=== PATIENT | female | born 1970 | race Caucasian/White ===

== ENCOUNTER 2019-09-05 08:34 | Outpatient (CLI) | payer BC, SELFPAY ==
--- NOTE | ~2019-09-05 | MM_ITS ---
EXAMINATION: MM screening cyril BI w vincent HISTORY: Screening mammogram TECHNIQUE: Craniocaudal and mediolateral oblique 3-D tomosynthesis images were obtained and synthetic 2-D images were generated. CAD analysis was submitted and interpreted. COMPARISON: Comparison to multiple prior studies sequentially, with oldest reviewed study dated 09/2012. BREAST PARENCHYMAL COMPOSITION: The breasts are heterogeneously dense, which may obscure small masses . FINDINGS: There is no evidence of suspicious mass, calcification, or architectural distortion to sugg est malignancy in either breast. There has been no suspicious interval change. IMPRESSION: 1. No mammographic evidence of malignancy. 2. Recommend routine screening mammography in one year. BI-RADS Category 1: Negative Reviewed, dictated and finalized at location A.
== END 2019-09-05 08:35 | disposition home or self-care (01) ==
LOC: ANHIMG 08:39
PROVIDERS: PCP Family Medicine; Visit Provider Obstetrics & Gynecology
DX: Z12.31 Encounter for screening mammogram for malignant neoplasm of breast (principal)
CPT/HCPCS: 77063; 77067

== ENCOUNTER → 2020-06-20 12:15 | Outpatient (CLI) | payer BC, SELFPAY ==
--- NOTE | ~2020-06-20 | XR_ITS ---
XR lumbar spine min 4V 06/20/2020 13:08 Indication: Osteoarthritis. Procedure: 5 views lumbar spine Comparison: 02/14/2006 Findings: There is disc narrowing at L3-4, L4-5 and L5-S1. There is moderate multilevel facet hypertr ophy. No fracture or traumatic malalignment. No evidence for spondylolisthesis. Sacral foramen are sy mmetric. Impression: 1: Mild-moderate lumbar spondylosis. Reviewed, dictated and finalized at location B. DOOR REPAIRER Impression: 1: Mild-moderate lumbar spondylosis.
--- NOTE | ~2020-06-20 | XR_ITS ---
XR knee RT min 4V 06/20/2020 13:08 INDICATION: Right knee pain PROCEDURE: 4 views right knee COMPARISON: 08/26/2014 FINDINGS: Fracture, dislocation or subluxation is not identified. No significant joint effusion. The soft tissues appear within normal limits. No foreign bodies are identified. IMPRESSION: 1: NO ACUTE BONE OR JOINT ABNORMALITY IDENTIFIED. Reviewed, dictated and finalized at location B. ER MEAT
--- NOTE | ~2020-06-20 | XR_ITS ---
XR sacroiliac joints min 3V 06/20/2020 13:08 Indication: Abnormal immunologic findings Procedure: AP and bilateral oblique views of the sacroiliac joints. Comparison: No prior studies for comparison. Findings: Normal anatomic alignment. No evidence for ankylosis or significant lytic lesions. Mild sym metric degenerative changes of the sacroiliac joints. Sacral foramen are symmetric. Impression: 1: Mild symmetric degenerative changes of the sacroiliac joints. Reviewed, dictated and finalized at location B. NG CUTTING MACHINE OPERATOR Impression: 1: Mild symmetric degenerative changes of the sacroiliac joints.
--- NOTE | ~2020-06-20 | XR_ITS ---
EXAMINATION: XR knee LT min 4V DATE: 06/20/2020 13:08 INDICATION: Other specified abnormally immunological findings in serum. TECHNIQUE: 4 views of left knee were obtained. COMPARISON: Left knee radiographs 08/26/14 FINDINGS: Bone alignment is normal. No fracture. There is mild tricompartmental osteoarthritis. No kn ee joint effusion. IMPRESSION: 1. Mild left knee osteoarthritis. Reviewed, dictated and finalized at location A. RAM PROFESSIONAL
--- NOTE | ~2020-06-20 | XR_ITS ---
EXAMINATION: HAND-RUFINA ARTHRITIS 3+VIEWS DATE: 06/20/2020 13:08 INDICATION: Bilateral hand weakness, left wrist pain and pain at the right thumb. TECHNIQUE: Posteroanterior, lateral, and oblique views of the left and of the right hands as well as a ballcatchers view of both hands were obtained. COMPARISON: None. FINDINGS: Alignment is normal at the bilateral hands and wrists. No fracture. Mild polyarticular osteoarthritis with symmetric typical distribution at the radial aspect of the carpus and at multiple predominantly distal interphalangeal joints. No erosions to suggest an inflammatory arthritis. IMPRESSION: 1. Typical distribution of mild polyarticular osteoarthritis at the bilateral hands. No findings to s uggest an inflammatory arthritis. Reviewed, dictated and finalized at location A. ULATOR OPERATOR IMPRESSION: 1. Typical distribution of mild polyarticular osteoarthritis at the bilateral h ands. No findings to suggest an inflammatory arthritis.
--- NOTE | ~2020-06-20 | XR_ITS ---
XR foot RT standing 2V, XR foot LT standing 2V 06/20/2020 13:08 INDICATION: Bilateral foot pain PROCEDURE: 2 views each foot COMPARISON: No prior studies for comparison. FINDINGS: Fracture, dislocation or subluxation is not identified. Lisfranc joint intact. The soft tis sues appear within normal limits. No foreign bodies are identified. IMPRESSION: 1: NO ACUTE BONE OR JOINT ABNORMALITY IDENTIFIED. Reviewed, dictated and finalized at location B. UP MAKER IMPRESSION: 1: NO ACUTE BONE OR JOINT ABNORMALITY IDENTIFIED.
== END ==
PROVIDERS: PCP Family Medicine; Visit Provider Internal Medicine
DX: R76.8 Other specified abnormal immunological findings in serum (principal); Z79.899 Other long term (current) drug therapy; M19.90 Unspecified osteoarthritis, unspecified site; Z71.89 Other specified counseling; M47.896 Other spondylosis, lumbar region; M17.12 Unilateral primary osteoarthritis, left knee
CPT/HCPCS: 72110; 72202; 73130; 73564; 73620

== ENCOUNTER → 2020-06-20 13:15 | Outpatient (CLI) | payer BC, SELFPAY ==
--- NOTE | ~2020-06-20 | XR_ITS ---
EXAMINATION: XR chest 2V 06/20/2020 13:34 INDICATION: Shortness of breath PROCEDURE: PA and lateral views of the chest COMPARISON: 03/13/2015 FINDINGS: The lungs are clear. The cardiomediastinal silhouette is within normal limits. There are no pleural effusions. There is no pneumothorax suspected. IMPRESSION: 1: NO ACUTE CARDIOPULMONARY DISEASE. Reviewed, dictated and finalized at location B. BODY MECHANIC
== END ==
PROVIDERS: Visit Provider Family Medicine
DX: R06.02 Shortness of breath (principal)
CPT/HCPCS: 71046

== ENCOUNTER 2020-08-13 15:47 | Outpatient (CLI) | payer BC, SELFPAY | END 2020-08-13 15:48 | disposition home or self-care (01) | LOC: ANHCOVIDVC 15:47 | PROVIDERS: PCP Family Medicine | DX: Z23 Encounter for immunization (principal) | CPT/HCPCS: 0001A; 91300 ==

== ENCOUNTER → 2020-08-18 13:33 | Outpatient (CLI) | payer BC, SELFPAY ==
--- NOTE | ~2020-08-18 | XR_ITS ---
XR foot LT min 3V DATE: 08/18/2020 13:52 INDICATION: Left foot injury TECHNIQUE: 4 views COMPARISON: 06/20/2020 left foot FINDINGS: No fracture or dislocation, periosteal reaction or bone destruction. IMPRESSION: Negative Reviewed, dictated and finalized at location A. IMPRESSION: Negative
== END ==
PROVIDERS: PCP Family Medicine; Visit Provider Physician Assistant
DX: S99.922A Unspecified injury of left foot, initial encounter (principal); X58.XXXA Exposure to other specified factors, initial encounter
CPT/HCPCS: 73630

== ENCOUNTER 2020-09-03 15:22 | Outpatient (CLI) | payer BC, SELFPAY | END 2020-09-03 15:23 | PROVIDERS: PCP Family Medicine | DX: Z23 Encounter for immunization (principal) | CPT/HCPCS: 0002A; 91300 ==

== ENCOUNTER → 2021-07-20 16:37 | Outpatient (CLI) | payer BC, SELFPAY ==
--- NOTE | ~2021-07-20 | XR_ITS ---
EXAMINATION: XR chest 2V DATE: 07/20/2021 16:52 INDICATION: Bronchitis, not specified as acute or chronic. TECHNIQUE: Frontal and lateral views of the chest were obtained. COMPARISON: Chest 2 views 06/20/2020 FINDINGS: The chest demonstrates clear lungs without pneumonia, pleural effusion, or pneumothorax. Th e heart size is normal. IMPRESSION: 1. No acute cardiopulmonary disease. Reviewed, dictated and finalized at location A.
== END ==
PROVIDERS: Visit Provider Nurse Practitioner Gerontology
DX: J40 Bronchitis, not specified as acute or chronic (principal)
CPT/HCPCS: 71046

== ENCOUNTER 2021-12-08 07:36 | Outpatient (CLI) | payer BC, SELFPAY ==
--- NOTE | ~2021-12-08 | MM_ITS ---
EXAMINATION: MM screening cyril BI w vincent HISTORY: Screening TECHNIQUE: Craniocaudal and mediolateral oblique 3-D tomosynthesis images were obtained and synthetic 2-D images were generated. CAD analysis was submitted and interpreted. COMPARISON: Comparison to multiple prior studies sequentially, with oldest reviewed study dated 01/01. BREAST PARENCHYMAL COMPOSITION: The breasts are heterogeneously dense, which may obscure small masses . FINDINGS: There is no evidence of suspicious mass, calcification, or architectural distortion to sugg est malignancy in either breast. There has been no suspicious interval change. IMPRESSION: 1. No mammographic evidence of malignancy. 2. Recommend routine screening mammography in one year. BI-RADS Category 1: Negative Reviewed, dictated and finalized at location A.
== END 2021-12-08 07:37 | disposition home or self-care (01) ==
PROVIDERS: PCP Family Medicine; Visit Provider Obstetrics & Gynecology
DX: Z12.31 Encounter for screening mammogram for malignant neoplasm of breast (principal)
CPT/HCPCS: 77063; 77067

== ENCOUNTER → 2022-01-26 07:55 | Outpatient (CLI) | payer BC, SELFPAY ==
--- NOTE | ~2022-01-26 | US_ITS ---
US abdomen limited INDICATION: Right upper quadrant pain PROCEDURE: Realtime right upper abdominal ultrasound. COMPARISON: No prior studies for comparison. FINDINGS: The pancreas is normal without focal mass or pancreatic ductal dilation. Liver echotexture is normal without focal mass or intrahepatic biliary dilatation. There is normal directional flow i n the portal vein. The gallbladder is normal without stones, gallbladder wall thickening or pericholecystic fluid. Comm on bile duct measures 4 mm. No sonographic Rowell's sign. IMPRESSION: 1: Normal limited abdominal ultrasound. Reviewed, dictated and finalized at location A.
== END ==
PROVIDERS: PCP Family Medicine; Visit Provider Physician Assistant
DX: R10.11 Right upper quadrant pain (principal)
CPT/HCPCS: 76705

== ENCOUNTER 2022-03-24 01:31 | Day surgery (SDC) | payer BC, SELFPAY ==
[2022-03-16 10:57] VITALS: BMI 25.0
[2022-03-24 08:28] VITALS: BP 133/62; PULSE 58; RESP 18; TEMP 36.1; O2SAT 100; BMI 25.7
[2022-03-24] MEDS: LACTATED RINGERS 1,000 ML 150 ML IV CONT (08:37)
--- NOTE | 2022-03-24 09:11 | WPDANESEPPF ---
Anes - Initial Pre Proc Eval Procedure: Operation Date: 03/24/22 09:45 Proposed Procedures p Esophagogastroduodenoscopy EGD - Obey Holt MD Date/Time: 03/24/22 09:11 Surgeon: Obey Holt MD Pre Op Diagnosis: epigastric pain & abdominal pain Patient Data Age: 52 Gender: F Height: 1.65 m Weight: 70.1 kg Last Vital Signs Temp 96.9 F L 03/24/22 08:28 Pulse 58 L 03/24/22 08:28 Resp 18 03/24/22 08:28 BP 133/62 03/24/22 08:28 Pulse Ox 100 03/24/22 08:28 O2 Del Method Room Air 03/24/22 08:28 Allergies Allergy/AdvReac Type Severity Reaction Status Date / Time codeine Allergy Unknown Hives Verified 03/24/22 08:27 Home Medications Medication Instructions Recorded Confirmed Type meloxicam 15 mg tablet 15 mg PO DAILY 06/01/21 03/16/22 History azelastine 205.5 mcg (0.15 %) 1 spray intranasal DAILY #30 mL 07/06/21 03/16/22 Rx nasal spray albuterol sulfate 90 mcg/actuation 1 inh inhalation Q4H PRN shortness 07/09/21 03/16/22 Rx aerosol inhaler (ProAir HFA) of breath or wheezing #6.7 grams dextroamphetamine-amphetamine 20 20 mg PO DAILY #30 tabs 01/07/22 03/16/22 Rx mg tablet (Adderall) omeprazole 40 mg capsule,delayed 40 mg PO DAILY #30 caps 01/07/22 03/16/22 Rx release Patient hx anesthesia problems: none Family hx anesthesia problems: none Results Review: All pre-operative results and documents have been reviewed as part of the pre-operative evaluation. [facility] Past Medical History Medical History KEO positive (~06/20/20) Anxiety Arthritis Stephanie Valentine virus infection H/O gastroesophageal reflux (GERD) History of 2019 novel coronavirus disease (COVID-19) Surgical History Surgical History H/O LEEP History of endometrial ablation Previous section Family History Family History Father Hypertension Family history of elevated blood lipids Cerebrovascular accident Carcinoma of colon Family history of cardiovascular disease Depression Family history of coronary artery disease Grandparent Family history of coronary artery disease, Onset Age: 70 Diabetes mellitus Carcinoma of colon Family history of malignant neoplasm of bone Family history of heart disease in male family member before age 55 Acute myocardial infarction, Onset Age: 44 Family history of cardiovascular disease Family history of arthritis Mother Family history of malignant neoplasm of urinary bladder Other Family history of malignant neoplasm Family history of malignant neoplasm of breast Family history of malignant neoplasm of cervix Social History Social History (Updated 02/18/22 @ 07:26 by Echo Allen) Social History: Smoking status: Never smoker Second hand tobacco smoke exposure: No Alcohol intake: current Alcohol use details: SOCIALLY Substance use: current Substance use type: marijuana Living arrangements: with family Gender identity (if verbalized by the patient): Female Sexual Orientation (if Verbalized by the Patient): Straight or Heterosexual Spiritual care concerns: No Anes - Eval Final PreProcedure Day of Procedure 03/24/22 09:11 Patient weight: normal Heart: regular rate and rhythm Lungs: clear to auscultation Airway: Mallampati scale class II Neurological: alert and oriented Last oral intake: >/= 8 hours ASA classification: II Emergent: no Anesthetic plan: proceed Anesthesia type and monitoring: general GIVS and standard monitoring Results Review: All pre-operative results and documents have been reviewed as part of the pre-operative evaluation. Informed Consent: The patient's anesthetic plan and its attendant risks and benefits were discussed with the patient/family/POA. Questions were solicited and answers provided to
--- NOTE | 2022-03-24 09:26 | PM.HPGS ---
History of Present Illness History of Present Illness Consent: Risks, benefits, and alternatives have been discussed and questions answered. Patient agrees to proceed with procedure. Chief complaint: epigastric pain & abdominal pain Narrative: Cornelia Carmen is a 52 year old female with gerd and intermittent epigastric pain, ultrasound negative, using ppi. Had EGD ~ 2018 Review of Systems Constitutional: Constitutional: Denies headache(s) and Denies weakness Eyes: Eyes: Denies blurry vision ENT: Reports Normal hearing present, Denies headache(s) and Denies neck pain Cardiovascular: Cardiovascular: Denies chest pain and Denies dyspnea Respiratory: Respiratory: Denies dyspnea Gastrointestinal: Gastrointestinal: Reports no additional gastrointestinal complaints Genitourinary: Genitourinary: Denies dysuria Musculoskeletal: Musculoskeletal: Denies neck pain Integumentary/Breasts: Skin/Breast: Denies dry skin Neurologic: Reports Normal hearing present, Denies headache(s) and Denies weakness Psychiatric: Psychiatric: Denies anxiety Endocrine: Endocrine: Denies change in body appearance Hematologic/Lymphatic: Hematologic/Lymphatic: Denies easy bleeding Allergic/Immunologic: Allergic/Immunologic: Denies urticaria PMFSH Past Medical History Medical History KEO positive (~06/20/20) Anxiety Arthritis Stephanie Valentine virus infection H/O gastroesophageal reflux (GERD) History of 2019 novel coronavirus disease (COVID-19) Surgical History Surgical History H/O LEEP History of endometrial ablation Previous section Family History Family History Father Hypertension Family history of elevated blood lipids Cerebrovascular accident Carcinoma of colon Family history of cardiovascular disease Depression Family history of coronary artery disease Grandparent Family history of coronary artery disease, Onset Age: 70 Diabetes mellitus Carcinoma of colon Family history of malignant neoplasm of bone Family history of heart disease in male family member before age 55 Acute myocardial infarction, Onset Age: 44 Family history of cardiovascular disease Family history of arthritis Mother Family history of malignant neoplasm of urinary bladder Other Family history of malignant neoplasm Family history of malignant neoplasm of breast Family history of malignant neoplasm of cervix Social History Social History (Updated 02/18/22 @ 07:26 by Echo Allen) Social History: Smoking status: Never smoker Second hand tobacco smoke exposure: No Alcohol intake: current Alcohol use details: SOCIALLY Substance use: current Substance use type: marijuana Living arrangements: with family Gender identity (if verbalized by the patient): Female Sexual Orientation (if Verbalized by the Patient): Straight or Heterosexual Spiritual care concerns: No Meds Home Medications and Allergies Home Medications Medication Instructions Recorded Confirmed Type meloxicam 15 mg tablet 15 mg PO DAILY 06/01/21 03/16/22 History azelastine 205.5 mcg (0.15 %) 1 spray intranasal DAILY #30 mL 07/06/21 03/16/22 Rx nasal spray albuterol sulfate 90 mcg/actuation 1 inh inhalation Q4H PRN shortness 07/09/21 03/16/22 Rx aerosol inhaler (ProAir HFA) of breath or wheezing #6.7 grams dextroamphetamine-amphetamine 20 20 mg PO DAILY #30 tabs 01/07/22 03/16/22 Rx mg tablet (Adderall) omeprazole 40 mg capsule,delayed 40 mg PO DAILY #30 caps 01/07/22 03/16/22 Rx release Allergies Allergy/AdvReac Type Severity Reaction Status Date / Time codeine Allergy Unknown Hives Verified 03/24/22 08:27 Vital Signs Vital Signs - 24 hr 03/24/22 08:28 Temperature 96.9 F L Pulse Rate 58 L Respiratory Rate 18 Blood Pressure 133/62 Pulse Oxi
[2022-03-24 09:44] VITALS: BP 136/82; PULSE 62; RESP 14; O2SAT 100
[2022-03-24 09:54] VITALS: BP 141/87; PULSE 61; RESP 19; O2SAT 100
[2022-03-24 10:04] VITALS: BP 118/58; PULSE 60; RESP 14; O2SAT 100
== END 2022-03-24 10:06 | disposition home or self-care (01) ==
PROVIDERS: PCP Family Medicine; Visit Provider Internal Medicine Gastroenterology
PROC: 0DJ08ZZ Inspection of Upper Intestinal Tract, Via Natural or Artificial Opening Endoscopic (ICD-10-PCS; CPT 43235; principal; 2022-03-24 09:45)
DX: K21.9 Gastro-esophageal reflux disease without esophagitis (principal); K44.9 Diaphragmatic hernia without obstruction or gangrene; K29.50 Unspecified chronic gastritis without bleeding; F41.9 Anxiety disorder, unspecified; F12.90 Cannabis use, unspecified, uncomplicated; Z79.51 Long term (current) use of inhaled steroids
CPT/HCPCS: 43239; 88305; J2704; J7120

== ENCOUNTER 2022-09-10 20:21 | Emergency (ER) | payer BC, SELFPAY ==
[2022-09-10] VITALS (10 sets, daily range): BP systolic 115–127; BP diastolic 72–81; PULSE 65–81; RESP 13–22; TEMP 36.4–36.6; O2SAT 96–100
--- NOTE | ~2022-09-10 | CT_ITS ---
EXAMINATION: CT abdomen pelvis w con DATE: 09/10/2022 22:05 INDICATION: right lower abdominal pain TECHNIQUE: Computed tomography (CT) of the abdomen and pelvis was performed with 100 mL Omnipaque-350 intravenous contrast. Automated exposure control and iterative reconstruction technique were employe d. The dose-length product was 462.91 mGy-cm. COMPARISON: 01/20/2016. FINDINGS: Lower thorax: Right middle lobe calcified hamartoma or granuloma. Liver: Normal. Biliary/Gallbladder: Gallbladder is collapsed. No bile duct dilation. Pancreas: No mass or duct dilation. Spleen: Normal. Adrenals:No mass. Kidneys: Subcentimeter right midpole hypodensity, too small to characterize but most likely represent s a cyst. No suspicious mass, stone, or hydronephrosis. GI tract: No small or large bowel dilation. Normal appendix. Mesentery/Peritoneum: No ascites, mass, or free air. Retroperitoneum: No mass. Pelvis: Pelvic organs are within normal limits. Soft Tissues: Soft tissues and body wall unremarkable. Bones: No acute osseous finding. IMPRESSION: No acute abdominopelvic process detected. Reviewed, dictated and finalized at location K.
[2022-09-10 21:00] LABS: Basophils Absolute Auto 0.1 K/mm3 (0.0-0.1); Basophils Percent Auto 0.7 % (0.2-1.2); Eosinophils Absolute Auto 0.2 K/mm3 (0-0.3); Eosinophils Percent Auto 2.6 % (0-4.4); Hematocrit 40.1 % (37.0-47.0); Hemoglobin 13.7 g/dL (12.0-15.0); Immature Granulocyte Absolute 0.03 K/mm3 (0.00-0.031); Immature Granulocyte Percent A 0.4 % (0-0.5); Lymphocytes Absolute Auto 3.27 K/mm3 (0.9-3.2); Lymphocytes Percent Auto 38.5 % (18.3-44.2); Mean Corpuscular HGB Conc 34.2 g/dl (32-36); Mean Corpuscular Hemoglobin 30.5 pg (26-34); Mean Corpuscular Volume 89.3 fl (80-100); Mean Platelet Volume 9.7 fl (7.4-10.4); Monocytes Absolute Auto 0.5 K/mm3 (0.1-0.6); Monocytes Percent Auto 6.1 % (2.6-8.5); Neutrophils Absolute Auto 4.4 K/mm3 (1.3-6.7); Neutrophils Percent Auto 51.7 % (45.5-73.1); Platelet Count Result 278 k/mm3 (150-375); Red Blood Count 4.49 M/mm3 (4.2-5.4); Red Cell Distribution Width 12.5 % (11.5-14.5); White Blood Count 8.5 K/mm3 (4.5-10.0)
[2022-09-10 21:04] LABS: Appearance Urine Clear (Clear); Bilirubin Urine Negative (Negative); Blood Urine Negative (Negative); Color Urine Yellow (Yellow); Glucose Urine UA Negative (Negative); Ketones Urine Negative (Negative); Leukocyte Esterase Ur Negative LEU/UL (Negative); Nitrate Urine Negative (Negative); Protein Urine Negative (Negative); Specific Grav Ur 1.006 (1.001-1.035); Urobilinogen Urine 0.2 mg/dL (<2.0); pH Urine 6.5 (5.0-9.0)
[2022-09-10 21:07] LABS: Add Urine Microscopic? NO
[2022-09-10 21:50] LABS: Alanine Aminotransferase 17 U/L (6-35); Albumin Level 4.9 g/dL (3.5-5.1); Alkaline Phosphatase 65 U/L (38-126); Anion Gap 11 mmol/L (8-16); Aspartate Amino Transferase 22 U/L (14-36); Bilirubin,Total 0.4 mg/dL (0.2-1.3); Blood Urea Nitrogen 13 mg/dL (7-17); Calcium 9.4 mg/dL (8.4-10.2); Carbon Dioxide 26 mmol/L (22-30); Chloride 103 mmol/L (98-107); Estimated CRCL calculation 69 ml/min; Estimated Glomerular Filt Rate > 60; Glucose 95 mg/dL (65-110); Lipase 95 U/L (23-300); Potassium 3.6 mmol/L (3.4-5.0); Sodium 140 mmol/L (137-145)
--- NOTE | 2022-09-10 22:01 | ED.ABDPAIN ---
HPI - Abdominal Pain General Chief Complaint: Abdominal Pain Stated Complaint: abdominal pain Time Seen by Provider: 09/10/22 21:05 Source: patient Mode of arrival: ambulatory Limitations: no limitations History of Present Illness HPI narrative: Patient is a 52-year-old female who presents to the ED with report of right lower abdominal pain. Patient reports she went to a [employer] restaurant tonight and began eating chips when she suddenly developed pain near her umbilicus. Pain was fairly severe and constant first and began to travel into her RLQ. It does seem to have subsided slightly since being in the ED. Patient denies history of similar pain. Denies any nausea, vomiting, diarrhea, constipation, urinary symptoms, fevers. Patient does report remote history of ovarian cysts. She recently started on hormone replacement therapy. Denies any vaginal bleeding or discharge. Related Data Allergies Allergy/AdvReac Type Severity Reaction Status Date / Time codeine Allergy Unknown Hives Verified 09/10/22 20:42 Review of Systems Review of Systems: CONSTITUTIONAL: Denies fever, chills, or sweats. CARDIOVASCULAR: Denies chest pain. RESPIRATORY: Denies dyspnea. GASTROINTESTINAL: See HPI. GENITOURINARY: Denies dysuria or hematuria. SKIN: Denies rash or itching. All systems reviewed & are unremarkable except as noted in HPI and below PMFSH Past Medical History Medical History KEO positive (~06/20/20) Anxiety Arthritis Stephanie Valentine virus infection H/O gastroesophageal reflux (GERD) Hiatal hernia History of 2019 novel coronavirus disease (COVID-19) Osteoarthritis Surgical History Surgical History H/O LEEP History of colonoscopy with polypectomy History of endometrial ablation Previous section Family History Family History Father Hypertension Family history of elevated blood lipids Cerebrovascular accident Carcinoma of colon Family history of cardiovascular disease Depression Family history of coronary artery disease Grandparent Family history of coronary artery disease, Onset Age: 70 Diabetes mellitus Carcinoma of colon Family history of malignant neoplasm of bone Family history of heart disease in male family member before age 55 Acute myocardial infarction, Onset Age: 44 Family history of cardiovascular disease Family history of arthritis Mother Family history of malignant neoplasm of urinary bladder Other Family history of malignant neoplasm Family history of malignant neoplasm of breast Family history of malignant neoplasm of cervix Social History Social History Social History: Smoking status: Never smoker Second hand tobacco smoke exposure: No Alcohol intake: current Alcohol use details: SOCIALLY Substance use: current Substance use type: marijuana Other substance usage details: ediables Lack of Transportation: No Lack of Food: Never True Current Housing: I Have Housing Concerned About Future Housing: No Difficulty Paying Gas/Electric Bills: No Difficulty Paying for Meds: No Currently Unemployed: No Difficulty w/ Childcare or Family Care: No Living arrangements: with family Occupation/Education: occupation Gender identity (if verbalized by the patient): Female Sexual Orientation (if Verbalized by the Patient): Straight or Heterosexual Spiritual care concerns: No Exam Narrative: GENERAL: Well appearing, obese with BMI of 31.6, non-toxic, in no acute distress. HEAD: Normocephalic, atraumatic. NECK: Supple. No adenopathy, no masses. RESPIRATORY: Airway patent, respirations nonlabored. Clear to auscultation bilaterally, no rales, rhonchi, wheezing. CARDIOVASCULAR: Regular rate and rhythm wit
== END 2022-09-11 00:06 | disposition home or self-care (01) ==
PROVIDERS: Emergency Medicine; Emergency Provider Physician Assistant; PCP Family Medicine
DX: R10.31 Right lower quadrant pain (principal); K21.9 Gastro-esophageal reflux disease without esophagitis; M19.90 Unspecified osteoarthritis, unspecified site; F41.9 Anxiety disorder, unspecified; Z86.16 Personal history of COVID-19
CPT/HCPCS: 36415; 74177; 80053; 81003; 81025; 83690; 85025; 99284; Q9967

== ENCOUNTER 2022-10-15 04:27 | Day surgery (SDC) | payer BC, SELFPAY ==
[2022-10-12 08:56] VITALS: BMI 25.8
[2022-10-15 06:24] VITALS: BMI 25.8
[2022-10-15 06:29] VITALS: BP 118/55; PULSE 59; RESP 18; TEMP 36.2; O2SAT 100
[2022-10-15] MEDS: LACTATED RINGERS 1,000 ML 150 ML IV CONT (06:42)
--- NOTE | 2022-10-15 07:26 | PM.HPGS ---
History of Present Illness History of Present Illness Consent: Risks, benefits, and alternatives have been discussed and questions answered. Patient agrees to proceed with procedure. Chief complaint: epigastric pain,constipation,fam hx colon ca Narrative: Cornelia Carmen is a 52 year old female with colon polyp 5 years ago Review of Systems Constitutional: Constitutional: Denies headache(s) and Denies weakness Eyes: Eyes: Denies blurry vision ENT: Reports Normal hearing present, Denies headache(s) and Denies neck pain Cardiovascular: Cardiovascular: Denies chest pain and Denies dyspnea Respiratory: Respiratory: Denies dyspnea Gastrointestinal: Gastrointestinal: Reports no additional gastrointestinal complaints Genitourinary: Genitourinary: Denies dysuria Musculoskeletal: Musculoskeletal: Denies neck pain Integumentary/Breasts: Skin/Breast: Denies dry skin Neurologic: Reports Normal hearing present, Denies headache(s) and Denies weakness Psychiatric: Psychiatric: Denies anxiety Endocrine: Endocrine: Denies change in body appearance Hematologic/Lymphatic: Hematologic/Lymphatic: Denies easy bleeding Allergic/Immunologic: Allergic/Immunologic: Denies urticaria PMFSH Past Medical History Medical History (Updated 10/15/22 @ 07:27 by Obey Holt MD) Adenomatous colon polyp KEO positive (~06/20/20) Anxiety Arthritis Stephanie Valentine virus infection H/O gastroesophageal reflux (GERD) Hiatal hernia History of 2019 novel coronavirus disease (COVID-19) Osteoarthritis Surgical History Surgical History H/O LEEP History of colonoscopy with polypectomy History of endometrial ablation Previous section Family History Family History Father Hypertension Family history of elevated blood lipids Cerebrovascular accident Carcinoma of colon Family history of cardiovascular disease Depression Family history of coronary artery disease Grandparent Family history of coronary artery disease, Onset Age: 70 Diabetes mellitus Carcinoma of colon Family history of malignant neoplasm of bone Family history of heart disease in male family member before age 55 Acute myocardial infarction, Onset Age: 44 Family history of cardiovascular disease Family history of arthritis Mother Family history of malignant neoplasm of urinary bladder Other Family history of malignant neoplasm Family history of malignant neoplasm of breast Family history of malignant neoplasm of cervix Social History Social History Social History: Smoking status: Never smoker Second hand tobacco smoke exposure: No Alcohol intake: current Alcohol use details: SOCIALLY Substance use: current Substance use type: marijuana Lack of Transportation: No Lack of Food: Never True Current Housing: I Have Housing Concerned About Future Housing: No Difficulty Paying Gas/Electric Bills: No Difficulty Paying for Meds: No Currently Unemployed: No Difficulty w/ Childcare or Family Care: No Living arrangements: with family Occupation/Education: occupation Gender identity (if verbalized by the patient): Female Sexual Orientation (if Verbalized by the Patient): Straight or Heterosexual Spiritual care concerns: No Meds Home Medications and Allergies Home Medications Medication Instructions Recorded Confirmed Type omeprazole 40 mg capsule,delayed 40 mg PO DAILY #90 caps 05/18/22 10/15/22 Rx release linaclotide 72 mcg capsule 72 mcg PO DAILY 10/08/22 10/15/22 History (Linzess) progesterone micronized 100 mg 100 mg PO QAM 10/08/22 10/15/22 History capsule dextroamphetamine-amphetamine 20 10 mg PO DAILY 10/12/22 10/15/22 History mg tablet (Adderall) Allergies Allergy/AdvReac Type Severity R
--- NOTE | 2022-10-15 07:30 | WPDANESEPPF ---
Anes - Initial Pre Proc Eval Procedure: Operation Date: 10/15/22 07:30 Proposed Procedures p Colonoscopy - Obey Holt MD Date/Time: 10/15/22 07:30 Surgeon: Obey Holt MD Pre Op Diagnosis: epigastric pain,constipation,fam hx colon ca Patient Data Age: 52 Gender: F Height: 1.65 m Weight: 70.4 kg Last Vital Signs Temp 36.2 C L 10/15/22 06:29 Pulse 59 L 10/15/22 06:29 Resp 18 10/15/22 06:29 BP 118/55 L 10/15/22 06:29 Pulse Ox 100 10/15/22 06:29 O2 Del Method Room Air 10/15/22 06:29 Allergies Allergy/AdvReac Type Severity Reaction Status Date / Time codeine Allergy Unknown Hives Verified 10/15/22 06:21 Home Medications Medication Instructions Recorded Confirmed Type omeprazole 40 mg capsule,delayed 40 mg PO DAILY #90 caps 05/18/22 10/15/22 Rx release linaclotide 72 mcg capsule 72 mcg PO DAILY 10/08/22 10/15/22 History (Linzess) progesterone micronized 100 mg 100 mg PO QAM 10/08/22 10/15/22 History capsule dextroamphetamine-amphetamine 20 10 mg PO DAILY 10/12/22 10/15/22 History mg tablet (Adderall) Patient hx anesthesia problems: none Family hx anesthesia problems: none Results Review: All pre-operative results and documents have been reviewed as part of the pre-operative evaluation. [facility] Past Medical History Medical History (Updated 10/15/22 @ 07:27 by Obey Holt MD) Adenomatous colon polyp KEO positive (~06/20/20) Anxiety Arthritis Stephanie Valentine virus infection H/O gastroesophageal reflux (GERD) Hiatal hernia History of 2019 novel coronavirus disease (COVID-19) Osteoarthritis Surgical History Surgical History H/O LEEP History of colonoscopy with polypectomy History of endometrial ablation Previous section Family History Family History Father Hypertension Family history of elevated blood lipids Cerebrovascular accident Carcinoma of colon Family history of cardiovascular disease Depression Family history of coronary artery disease Grandparent Family history of coronary artery disease, Onset Age: 70 Diabetes mellitus Carcinoma of colon Family history of malignant neoplasm of bone Family history of heart disease in male family member before age 55 Acute myocardial infarction, Onset Age: 44 Family history of cardiovascular disease Family history of arthritis Mother Family history of malignant neoplasm of urinary bladder Other Family history of malignant neoplasm Family history of malignant neoplasm of breast Family history of malignant neoplasm of cervix Social History Social History Social History: Smoking status: Never smoker Second hand tobacco smoke exposure: No Alcohol intake: current Alcohol use details: SOCIALLY Substance use: current Substance use type: marijuana Lack of Transportation: No Lack of Food: Never True Current Housing: I Have Housing Concerned About Future Housing: No Difficulty Paying Gas/Electric Bills: No Difficulty Paying for Meds: No Currently Unemployed: No Difficulty w/ Childcare or Family Care: No Living arrangements: with family Occupation/Education: occupation Gender identity (if verbalized by the patient): Female Sexual Orientation (if Verbalized by the Patient): Straight or Heterosexual Spiritual care concerns: No Anes - Eval Final PreProcedure Day of Procedure 10/15/22 07:30 Patient weight: normal Heart: regular rate and rhythm Lungs: clear to auscultation Airway: Mallampati scale class II Neurological: alert and oriented Last oral intake: >/= 8 hours ASA classification: II Emergent: no Anesthetic plan: proceed Anesthesia type and monitoring: general GIVS and standard monitoring Results Review: Royce vega
[2022-10-15 07:52] VITALS: BP 114/61; PULSE 62; RESP 20; O2SAT 100
[2022-10-15 08:02] VITALS: BP 115/66; PULSE 59; RESP 17; O2SAT 100
[2022-10-15 08:12] VITALS: BP 129/77; PULSE 64; RESP 18; O2SAT 100
== END 2022-10-15 08:23 | disposition home or self-care (01) ==
PROVIDERS: PCP Family Medicine; Visit Provider Internal Medicine Gastroenterology
PROC: 0DJD8ZZ Inspection of Lower Intestinal Tract, Via Natural or Artificial Opening Endoscopic (ICD-10-PCS; CPT 45378; principal; 2022-10-15 07:30)
DX: R10.13 Epigastric pain (principal); K59.00 Constipation, unspecified; D12.3 Benign neoplasm of transverse colon; K64.8 Other hemorrhoids; K64.4 Residual hemorrhoidal skin tags; Z80.0 Family history of malignant neoplasm of digestive organs; F12.90 Cannabis use, unspecified, uncomplicated
CPT/HCPCS: 45385; 88305; J2704; J7120

== ENCOUNTER → 2022-11-19 12:04 | Outpatient (CLI) | payer BC, SELFPAY ==
--- NOTE | ~2022-11-19 | XR_ITS ---
Lumbosacral Spine: AP and lateral views Clinical History: Pain Findings: The normal lordotic curve is maintained. The vertebral bodies and posterior elements are i ntact. There is advanced facet arthropathy at L4-L5 and L5-S1. There is moderate facet arthropathy in the remainder of the lumbar spine. Intervertebral disc spaces are relatively well-preserved. The sac roiliac joints are normally outlined. Impression: Moderate to severe facet arthropathy throughout the lumbar spine, as detailed above. Reviewed, dictated and finalized at location M. Impression: Moderate to severe facet arthropathy throughout the lumbar spine, as detailed dudley ortiz.
== END ==
PROVIDERS: PCP Family Medicine; Visit Provider Physician Assistant
DX: M54.50 Low back pain, unspecified (principal); M25.50 Pain in unspecified joint; M12.9 Arthropathy, unspecified; R76.8 Other specified abnormal immunological findings in serum
CPT/HCPCS: 72100

== ENCOUNTER → 2022-11-19 12:08 | Outpatient (CLI) | payer BC, SELFPAY ==
--- NOTE | ~2022-11-19 | XR_ITS ---
Cervical Spine: AP, lateral, open-mouth views Clinical History: Pain Findings: The normal lordotic curve is maintained. The vertebral bodies and posterior elements appea r intact. There is mild degenerative disc narrowing at C5-C6. Pre-vertebral soft tissues are unremark able. Impression: Mild degenerative disc narrowing at C5-C6. Reviewed, dictated and finalized at [facility]. Impression: Mild degenerative disc narrowing at C5-C6.
== END ==
PROVIDERS: PCP Family Medicine; Visit Provider Nurse Practitioner Gerontology
DX: M54.2 Cervicalgia (principal)
CPT/HCPCS: 72050

== ENCOUNTER 2023-04-13 15:40 | Outpatient (CLI) | payer BC, SELFPAY ==
--- NOTE | ~2023-04-13 | MM_ITS ---
EXAMINATION: MM screening [facility] BI w [facility] HISTORY: Screening mammogram TECHNIQUE: Craniocaudal and mediolateral oblique 3-D tomosynthesis images were obtained and synthetic 2-D images were generated. CAD analysis was submitted and interpreted. COMPARISON: 12/08/2021, 09/05/2019, 06/06/2018 BREAST PARENCHYMAL COMPOSITION: There are scattered areas of fibroglandular density. FINDINGS: A stable mass with biopsy change is noted in the posterior third of the right breast. No [place] mass, calcification, or architectural distortion are identified in either breast to suggest malignancy. There has been no suspicious interval change. IMPRESSION: 1. No mammographic evidence of malignancy. 2. Recommend routine screening mammography in one year. BI-RADS Category 2: Benign finding(s). Reviewed, dictated and finalized at location A. 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
== END 2023-04-13 15:41 | disposition home or self-care (01) ==
LOC: ANHIMG 15:44
PROVIDERS: PCP Family Medicine; Visit Provider Obstetrics & Gynecology
DX: Z12.31 Encounter for screening mammogram for malignant neoplasm of breast (principal)
CPT/HCPCS: 77063; 77067

== ENCOUNTER 2023-09-29 14:13 | Outpatient (CLI) | payer BC, SELFPAY ==
--- NOTE | ~2023-09-29 | US_ITS ---
EXAMINATION: US transvaginal DATE: 09/29/2023 14:45 INDICATION: Menopausal on hormone replacement therapy TECHNIQUE: Multiple transabdominal and endovaginal sonographic images of the pelvis were obtained. COMPARISON: CT dated 09/10/2022 FINDINGS: The retroverted uterus measures 7.5 x 4.3 x 4.2 cm. The endometrial complex measures 5 mm in thicknes s which is at the upper limits of normal while on hormone replacement therapy. No significant interva l change in a 2.8 x 2.0 x 2.9 cm hypoechoic mass at the posterior uterine fundus consistent with a ut erine fibroid. The right ovary measures 2.2 x 1.4 x 1.7 cm. The left ovary measures 2.3 x 1.4 x 1.7 c m. Vascular flow identified in both ovaries on color Doppler. There is no free fluid in the pelvis. IMPRESSION: 1. 2.9 cm uterine fibroid. 2. Endometrial complex measures 5 mm which is at the upper limits of normal on hormone replacement th tim. Reviewed, dictated and finalized at location A. IMPRESSION: 1. 2.9 cm uterine fibroid. 2. Endometrial complex measures 5 mm which is at the upper limits of normal on hormone replacement therapy.
== END 2023-09-29 14:14 ==
LOC: MICIMG 14:14
PROVIDERS: PCP Obstetrics & Gynecology; Visit Provider Obstetrics & Gynecology Gynecology
DX: N95.9 Unspecified menopausal and perimenopausal disorder (principal); Z79.890 Hormone replacement therapy; D25.9 Leiomyoma of uterus, unspecified
CPT/HCPCS: 76830

== ENCOUNTER 2024-01-31 11:17 | Outpatient (CLI) | payer BC, SELFPAY ==
--- NOTE | ~2024-01-31 | US_ITS ---
Renal-Bladder ultrasound Clinical History: Chronic kidney disease Technique: Real-time sonographic imaging of the kidneys and urinary bladder was performed. Findings: The right kidney measures 9.9 cm in length and the left kidney measures 10.4 cm. There is n o hydronephrosis or renal calculus identified. Renal cortical echogenicity is within normal limits. N o renal mass lesion is identified. The urinary bladder is moderately distended at the time of this exam. No intraluminal echoes are iden tified. No abnormal wall thickening is seen. Impression: Unremarkable ultrasound of the kidneys and urinary bladder. Reviewed, dictated and finalized at location M. Impression: Unremarkable ultrasound of the kidneys and urinary bladder.
== END 2024-01-31 11:18 | disposition home or self-care (01) ==
LOC: MICIMG 11:17
PROVIDERS: PCP Physician Assistant; Visit Provider Physician Assistant
DX: N18.9 Chronic kidney disease, unspecified (principal)
CPT/HCPCS: 76775

== ENCOUNTER 2024-02-24 12:23 | Emergency (ER) | payer BC, SELFPAY ==
--- NOTE | ~2024-02-24 | CT_ITS ---
EXAMINATION: CT cervical spine wo con DATE: 02/24/2024 14:54 INDICATION: Paresthesias TECHNIQUE: Computed tomography (CT) of the cervical spine was performed without intravenous contrast. Iterative reconstruction technique was employed. The dose-length product was 346.07 mGy-cm. COMPARISON: None FINDINGS: Straightening of the normal cervical lordosis. Vertebral body heights are normal. No fractures. Mild to moderate disc height loss at C5-C6, T2-T3 and T3-T4 and mild disc height loss at T1-T2. . Moderate uncovertebral osteoarthritis on the right at C3-C4 and bilaterally at C5-C6. Minimal to mild uncover tebral osteoarthritis the remaining cervical levels. There is multilevel cervical facet osteoarthriti s, severe on the left at C2-C3 and on the right at C3-C4, mild on the right at C2-C3 and C5-C6 and on the left at C6-7 with moderate osteoarthritis at the remaining bilateral cervical facet joints. Disc bulge and ossification along the posterior longitudinal ligament at C5-C6 and additional disc bulge at C6-C7 related to mild central canal stenosis at these levels. Mild to moderate neural foraminal st enosis on the left at C2-C3, the right at C3-C4 and mild neural foraminal stenosis on the left at C3- C4 and bilaterally at C5-C6. Cervical soft tissues are unremarkable. Calcified mediastinal lymph node s consistent with old granulomatous disease. Visualized upper lungs are clear. IMPRESSION: 1. Mild to moderate lower cervical predominant and upper thoracic spondylosis. Reviewed, dictated and finalized at location A.
--- NOTE | ~2024-02-24 | CT_ITS ---
CT brain wo con Ordering provider: Florence Michel MD History: 54 years Female with . paresthesias upper extrem . Comparison: None. Technique: CT of the head without contrast. 605.33 and FINDINGS: BRAIN PARENCHYMA AND CSF SPACES: No midline shift, mass effect or hemorrhage. The brain parenchyma a nd CSF spaces are otherwise normal. VISUALIZED PARANASAL SINUSES: Well aerated. MASTOIDS: Well aerated. BONES: The bones appear intact. SOFT TISSUES: Visualized nasopharynx is normal. Superficial soft tissues are normal. IMPRESSION: No acute intracranial findings. Reviewed, dictated and finalized at location A.
[2024-02-24 12:28] VITALS: BP 139/41; PULSE 62; RESP 18; TEMP 36; O2SAT 100
--- NOTE | 2024-02-24 12:40 | ECG_ITS ---
Test Date: 2024-02-24 12:40:16 Measurements Intervals [place] Rate: 54 P: 15 VT: 155 QRS: 54 QRSD: 86 T: 40 QT: 414 QTc: 395 Interpretive Statements SINUS BRADYCARDIA OTHERWISE NORMAL ELECTROCARDIOGRAM No previous ECG available for comparison Electronically Signed On 02-25-2024 09:37:49 CDT by Sunil Hugo M.D.
--- NOTE | 2024-02-24 13:00 | PC.NURSE ---
in waiting room complaining of feeling like passing out appears anxious and hyperventilating, ERP notified
[2024-02-24 13:10] VITALS: BP 152/88; PULSE 92; RESP 26; O2SAT 100
[2024-02-24 13:27] LABS: Basophils Absolute Auto 0.1 K/mm3 (0.0-0.1); Basophils Percent Auto 0.5 % (0.2-1.2); Eosinophils Absolute Auto 0.1 K/mm3 (0-0.3); Eosinophils Percent Auto 0.4 % (0-4.4); Hematocrit 43.8 % (37.0-47.0); Hemoglobin 15.1 g/dL (12.0-15.0); Immature Granulocyte Absolute 0.07 K/mm3 (0.00-0.031); Immature Granulocyte Percent A 0.6 % (0-0.5); Lymphocytes Absolute Auto 1.66 K/mm3 (0.9-3.2); Lymphocytes Percent Auto 13.8 % (18.3-44.2); Mean Corpuscular HGB Conc 34.5 g/dl (32-36); Mean Corpuscular Hemoglobin 30.8 pg (26-34); Mean Corpuscular Volume 89.2 fl (80-100); Mean Platelet Volume 9.9 fl (7.4-10.4); Monocytes Absolute Auto 0.6 K/mm3 (0.1-0.6); Monocytes Percent Auto 5.2 % (2.6-8.5); Neutrophils Absolute Auto 9.6 K/mm3 (1.3-6.7); Neutrophils Percent Auto 79.5 % (45.5-73.1); Platelet Count Result 289 k/mm3 (150-375); Red Blood Count 4.91 M/mm3 (4.2-5.4); Red Cell Distribution Width 11.6 % (11.5-14.5)
[2024-02-24 13:36] LABS: Alanine Aminotransferase 20 U/L (6-35); Albumin Level 4.7 g/dL (3.5-5.1); Alkaline Phosphatase 70 U/L (38-126); Anion Gap 8 mmol/L (4-12); Aspartate Amino Transferase 25 U/L (14-36); Bilirubin,Total 0.5 mg/dL (0.2-1.3); Blood Urea Nitrogen 17 mg/dL (7-17); Calcium 9.3 mg/dL (8.4-10.2); Carbon Dioxide 27 mmol/L (22-30); Chloride 99 mmol/L (98-107); Estimated CRCL calculation 56 ml/min; Estimated Glomerular Filt Rate > 60; Glucose 128 mg/dL (65-110); Lipase 61 U/L (23-300); Potassium 4.6 mmol/L (3.4-5.0); Sodium 134 mmol/L (137-145)
[2024-02-24 13:48] LABS: Troponin I < 0.012 ng/mL (0.000-0.034)
[2024-02-24 14:23] LABS: Add Urine Microscopic? NO; Appearance Urine Clear (Clear); Bilirubin Urine Negative (Negative); Blood Urine Negative (Negative); Color Urine Yellow (Yellow); Glucose Urine UA Negative (Negative); Ketones Urine Trace mg/dL (Negative); Leukocyte Esterase Ur Negative LEU/UL (Negative); Nitrate Urine Negative (Negative); Protein Urine Negative (Negative); Specific Grav Ur 1.026 (1.001-1.035)
--- NOTE | 2024-02-24 14:38 | ED.NAVMDI ---
HPI - Nausea/Vomiting/Diarrhea General Chief complaint: Nausea/Vomiting/Diarrhea Stated complaint: Nausea Time Seen by Provider: 02/24/24 13:38 Source: patient and family Mode of arrival: ambulatory Limitations: no limitations History of Present Illness HPI Narrative: Patient presents with multiple complaints. She notes that she started having nausea approximately 1 hour prior to arrival but no vomiting or diarrhea. She denies any abdominal pain. She is having bilateral jaw pain which feels like she is clenching her jaw but she is not. She also notes right leg pain particularly along the lateral thigh. Earlier she felt like her left hand was asleep and then she felt like she was having a panic attack. She has also been itchy. In general, she states she is not feeling well. Denies any fall/injury/trauma. She has been having morning headaches for the past 5 days. She did take tramadol last night for the 1st time. She denies any chest pain or shortness of breath. Related Data Home Medications Medication Instructions Recorded Confirmed progesterone micronized 100 mg 100 mg PO QAM 10/08/22 01/18/24 capsule estradiol 2 mg tablet 2 mg PO DAILY 11/17/23 01/18/24 progesterone micronized 100 mg 100 mg PO QAM 11/17/23 01/18/24 capsule thyroid (pork) 300 mg tablet 300 mg PO DAILY 11/17/23 01/18/24 ([place] Thyroid) Allergies Allergy/AdvReac Type Severity Reaction Status Date / Time codeine Allergy Unknown Hives Verified 01/18/24 07:34 [facility] Past Medical History Medical History (Updated 02/26/24 @ 08:55 by Florence Michel MD) Adenomatous colon polyp KEO positive (~06/20/20) Anxiety Arthritis Stephanie Valentine virus infection Gastritis H/O gastroesophageal reflux (GERD) Hiatal hernia History of 2019 novel coronavirus disease (COVID-19) Left hand dominant Osteoarthritis Surgical History Surgical History H/O LEEP History of colonoscopy with polypectomy History of endometrial ablation Previous section Family History Family History Father Hypertension Family history of elevated blood lipids Cerebrovascular accident Carcinoma of colon Family history of cardiovascular disease Depression Family history of coronary artery disease Grandparent Family history of coronary artery disease, Onset Age: 70 Diabetes mellitus Carcinoma of colon Family history of malignant neoplasm of bone Family history of heart disease in male family member before age 55 Acute myocardial infarction, Onset Age: 44 Family history of cardiovascular disease Family history of arthritis Mother Family history of malignant neoplasm of urinary bladder Other Family history of malignant neoplasm Family history of malignant neoplasm of breast Family history of malignant neoplasm of cervix Social History Social History Social History: Smoking status: Never smoker Second hand tobacco smoke exposure: No Alcohol intake: current Alcohol use details: SOCIALLY Substance use: current Substance use type: marijuana Last use: Pt rarely uses Marijuana Do You Feel Safe in your Home?: Yes Lack of Transportation: No Lack of Food: Never True Current Housing: I Have Housing Concerned About Future Housing: No Difficulty Paying Gas/Electric Bills: No Difficulty Paying for Meds: No Currently Unemployed: No Education: Don't Know Difficulty w/ Childcare or Family Care: No Living arrangements: with family 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
[2024-02-24 14:44] LABS: Thyroid Stimulating Hormone Reflex 0.067 uIU/mL (0.465-4.68)
[2024-02-24 15:14] LABS: D Dimer < 0.27 ug/mL (<0.48)
--- NOTE | 2024-02-24 15:14 | PC.NURSE ---
Pt reports nausea has subsided. Denies zofran at this time.
[2024-02-24 15:15] VITALS: BP 118/62; PULSE 64; RESP 18; O2SAT 100
--- NOTE | 2024-02-24 15:16 | PC.NURSE ---
Pt states she thinks symptoms have resolved since panic attack is over. reports feeling at baseline. VSS, resting comfortably in bed, denies requests at this time.
[2024-02-24 15:18] LABS: Free T4 Free Thyroxine Reflex 1.25 ng/dL (0.78-2.19)
[2024-02-24 16:52] LABS: Total Triiodothyronine (T3) 2.18 NG/ML (0.97-1.69)
[2024-02-24 17:19] VITALS: BP 118/77; PULSE 65; RESP 16; O2SAT 99
[2024-02-28 03:09] LABS: T3 Free 4.9 pg/mL (2.3-4.2)
== END 2024-02-24 17:45 | disposition home or self-care (01) ==
PROVIDERS: Emergency Medicine; Emergency Provider Student in an Organized Health Care Education/Training Program; PCP Physician Assistant
DX: R11.0 Nausea (principal); M47.812 Spondylosis without myelopathy or radiculopathy, cervical region; M47.814 Spondylosis without myelopathy or radiculopathy, thoracic region; D72.829 Elevated white blood cell count, unspecified; R94.6 Abnormal results of thyroid function studies; K21.9 Gastro-esophageal reflux disease without esophagitis; K44.9 Diaphragmatic hernia without obstruction or gangrene; M19.90 Unspecified osteoarthritis, unspecified site; Z86.16 Personal history of COVID-19; Z86.0101 Personal history of adenomatous and serrated colon polyps; Z79.899 Other long term (current) drug therapy; Z79.890 Hormone replacement therapy; R00.1 Bradycardia, unspecified; M47.813 Spondylosis without myelopathy or radiculopathy, cervicothoracic region
CPT/HCPCS: 36415; 70450; 72125; 80053; 81003; 83690; 84439; 84443; 84480; 84484; 85025; 85380; 93005; 99284

== ENCOUNTER 2024-05-28 10:17 | Outpatient (CLI) | payer BC, SELFPAY ==
--- NOTE | ~2024-05-28 | XR_ITS ---
EXAMINATION: XR hip LT 2V w AP pelvis DATE: 05/28/2024 10:38 INDICATION: Pain in unspecified hip. TECHNIQUE: An anteroposterior view of the pelvis and 2 views of left hip were obtained. COMPARISON: None. FINDINGS: There is lumbar dextrocurvature and mild spondylosis. No fracture. There is mild osteoarthr itis of the hips. IMPRESSION: 1. Mild osteoarthritis of the hips. Reviewed, dictated and finalized at location B. LLOFACIAL PATHOLOGY
== END 2024-05-28 10:18 | disposition home or self-care (01) ==
LOC: MICIMG 10:19
PROVIDERS: PCP Nurse Practitioner Family; Visit Provider Nurse Practitioner Family
DX: M25.552 Pain in left hip (principal)
CPT/HCPCS: 73502

== ENCOUNTER 2024-08-22 15:37 | Outpatient (CLI) | payer BC, SELFPAY ==
--- NOTE | ~2024-08-22 | XR_ITS ---
CHEST RADIOGRAPH, PA AND LATERAL CLINICAL HISTORY: R06.02 - Shortness of breath . COMPARISON: 07/20/2021 TECHNIQUE: PA and lateral views of the chest. FINDINGS The cardiomediastinal silhouette is unremarkable. The lungs are clear. Visualized osseous structures and soft tissues are unremarkable. IMPRESSION: No focal infiltrate or effusion. Reviewed, dictated and finalized at location A.
== END 2024-08-22 15:38 | disposition home or self-care (01) ==
PROVIDERS: PCP Family Medicine; Visit Provider Nurse Practitioner Adult Health
DX: R06.02 Shortness of breath (principal)
CPT/HCPCS: 71046

== ENCOUNTER 2024-09-27 12:39 | Outpatient (CLI) | payer BC, SELFPAY ==
--- OUTSIDE RECORDS SUMMARY | 2024-09-27 12:44 | XMS_ITS | Clinical Summary ---
Author Organization [facility] Address [address] [place] [address] Care Team Providers Care Air Deodorizer Servicer Name Role Phone Unavailable Primary Care Provider Unavailabl e Encounters Date Type Department Care Team Description 09/25/2024 External Device Data [facility] ABSTRACTION Provider, Abstract 09/11/2024 External Device Data [facility] ABSTRACTION Provider, Abstract 07/25/2024 External Device Data [facility] ABSTRACTION Provider, Abstract 07/18/2024 External Device Data [facility] ABSTRACTION Provider, Abstract 07/17/2024 External Device Data [facility] ABSTRACTION Provider, Abstract 07/14/2024 External Device Data [facility] ABSTRACTION Provider, Abstract 07/13/2024 External Device Data [facility] ABSTRACTION Provider, Abstract 07/11/2024 External Device Data STL ABSTRACTION Provider, Abstract from Last 3 Months Social History Tobacco Use Types Packs/Day Years Used Date Smoking Tobacco: Never Assessed Comments Unknown Sex and Gender Information Value Date Recorded Sex Assigned at Not on file 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 Gender Identity Not on file Sexual Orientation Not on file Plan of Treatment Health Maintenance Due Date Last Done Comments Pre-Diabetes and Diabetes Screening 1969 DTAP/TDAP/TD VACCINES (1 - Tdap) 01/13/1988 HEPATITIS B VACCINES (1 of 3 - 19+ 3-dose series) 10/1987 HPV/Cotest (21-29) 1990 CERVICAL CANCER SCREENING 1999 HPV/Cotest (30-65) 1999 PAP SMEAR 1999 BREAST CANCER SCREENING 2009 COLORECTAL SCREENING 2014 Colorectal Cancer Screening 2014 FIT-DNA Q 3 years 2014 FIT/FOBT Q 1 year 2014 Flex Sig/CT Colonography Q 5 years 2014 ZOSTER VACCINE (1 of 2) 2019 INFLUENZA VACCINE (#1) 2023 Insurance [facility] BLUE ACCESS CHOICE [facility] [place]
--- OUTSIDE RECORDS SUMMARY | 2024-09-27 12:44 | XMS_ITS | Clinical Summary ---
Author Organization [facility] Address [address] [place] [address] Care Team Providers Care Director Of Corporate Marketing Name Role Phone Lazara Augustin MD Primary Care Provider Allergies Active Allergy Reactions Criticality Noted Date Comments Codeine Itching Reaction: Itching, Codeine Sulfate Unknown 09/02/2023 Medications meloxicam (MOBIC) 15 mg tablet 1 tablet (15 mg total) daily 6 Active dextroamphetami ne-amphetamine (AdderalL) 10 mg tablet Active omeprazole (PriLOSEC) 40 mg capsule Take 1 capsule (40 mg total) by mouth daily 4 Active estradioL (ESTRACE) 1 mg tablet Take 1.5 tablets (1.5 mg total) by mouth daily 4 Active progesterone (PROMETRIUM) 200 mg capsule Take 1 capsule (200 mg total) by mouth daily 4 Active testosterone 100 mg pellet 4 Active dextroamphetami ne/amphetamine (ADDERALL ORAL) Rx: Adderall A ctive IBUPROFEN ORAL 800 mg 3 (three) times a day 6 Active eszopiclone (LUNESTA) 2 mg tablet Take 1 tablet (2 mg total) by mouth nightly at bedtime 4 Active clobetasoL (TEMOVATE) 0.05 % cream APPLY TOPICALLY TO THE AFFECTED AREA TWICE DAILY FOR 2 WEEKS 4 Active progesterone (PROMETRIUM) 100 mg capsule Take 1 capsule (100 mg total) by mouth daily 4 Active UNABLE TO FIND Med Name: Thyroid combo T3/T4 Active prasterone, dhea, 25 mg capsule Take 0.4 capsules (10 mg total) by mouth Active UNABLE TO FIND Med Name: vitamin A, D, K Active Active Problems Problem Noted Date Diagnosed Date 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 Assessment & Plan (02/10/2024 3:45 PM CDT): Will go to local eyecare provider for glasses Rx, rec PAL and/or SV computer Assessment & Plan (01/20/2024 3:35 PM CDT): Check refraction once dry eye signs improve Dry eye syndrome of both eyes 01/20/2024 Assessment & Plan (02/10/2024 3:46 PM CDT): Cont pfats - rec using 3-4x/day Cont ltx BID another week, decrease to daily for 2 weeks, then discontinue Assessment & Plan (01/20/2024 4:30 PM CDT): Cont pf Systane QID+ Start lotemax BID both eyes (OU) Can consider Restasis and/or punctal plugs in ni signs/sx S/P LASIK surgery of both eyes 01/20/2024 Attention deficit disorder (ADD) without hyperac tivity 10/21/2014 Overview (08/13/2016): Attention deficit disorder Surgical History Surgery Date Site/Laterality Comments ENDOMETRIAL ABLATION uterine ablation SECTION 02/13/1998 LASIK 2005 Medical History Medical History Date Comments Arthritis 2020 Autoimmune disease 2017 Family History Medical History Relation Name Comments Cancer Father Cesar Blancas Colon cancer Father Cesar Blancas Cancer, colon; Depression Father Cesar Blancas Early Father Cesar Blancas Hypertension Father Cesar Blancas Stroke Father Cesar Blancas Early Father's Brother 1 Radha White Heart attack Father's Brother 1 Radha White Stroke Father's Brother 1 Radha White Mental illness Father's Brother 2 Gilberto White Vision loss Father's Brother 3 Bud White COPD Father's Sister 1 Jessie White Vision loss Father's Sister 2 Juana Conn Kidney disease Maternal Grandfather Jean Paul Arboleda Arthritis Maternal Grandmother Gwendolyn Esparza COPD Mother Khadra White Hypertension Mother Khadra White Cancer Mother's Sister 1 Ria Grindley Cancer Mother's Sister 2 Sheridan Barnes Diabetes Paternal Grandfather Miladis White Heart attack Paternal Grandfather Miladis White Hypertension Paternal Grandfather Miladis White Memory loss Paternal Grandfather Miladis White Stroke Paternal Grandfather Miladis White Alzheimer's disease Paternal Grandmother Kaylie White Bone cancer Paternal Grandmother Kaylie White Cancer , bone; Cancer Paternal Grandmother Kaylie White Heart attack Paternal Grandmother Kaylie White Heart disease Paternal Grandmother Kaylie White Heart disease; Hypertension Paternal Grandmother Kaylie White Stroke Paternal Grandmother Kaylie White Relation Name Status Comments Father Cesar White Father's Brother 1 Radha White Father's Brother 2 Gilberto White Father's Brother 3 Bud White Father's Sister 1 Jessie White Father's Sister 2 Juana Mckeon Maternal Grandfather Jean Paul Arboleda Maternal Grandmother Gwendolyn Esparza Mother Khadra White Mother's Sister 1 Ria Grindley Mother's Sister 2 Sheridan Barnes Paternal Grandfather Miladis White Paternal Grandmother Kaylie White Social History Tobacco Use Types Packs/Day Years Used Date Smoking Tobacco: Never Smokeless Tobacco: Never Comments: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, 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 Alcohol Use Standard Drinks/Week Comments Yes 0 (1 standard drink = 0.6 oz pur e alcohol) Personal Safety Answer Date Recorded Getting School Help Needed Not on file 08/22 Comments Unknown Sex and Gender Information Value Date Recorded Sex Assigned at Not on file 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 Gender Identity Not on file Sexual Orientation Not on file Obstetrics History Last Filed Vital Signs Vital Sign Reading Time Taken Comments Blood Pressure 128/80 10/21/2014 1:40 PM CDT Pulse 76 10/21/2014 1:40 PM CDT Temperature - - Respiratory Rate - - Oxygen Saturation - - Inhaled Oxygen Concentration - - Weight 68.9 kg (152 lb) 09/28/2023 11:45 AM CDT Height 165.1 cm (5' 5 ) 09/28/2023 11:45 AM CDT Body Mass Index 25.29 09/28/2023 11:45 AM CDT Plan of Treatment Health Maintenance Due Date Last Done Comments Breast Cancer Screening-Mammogram 1969 Cervical Cancer Screening 1969 Colon Cancer Screening-Colonoscopy 1969 Depression Screening 1969 Hepatitis C Screening 1969 DTaP/Tdap/Td Vaccine (1 - Tdap) 01/13/1980 Hepatitis B Screening 1987 Regular Well Visit/Exam 18-64 1987 Zoster Vaccine (1 of 2) 2019 Covid-19 Vaccine (3 - 2023-2 5 season) 2024 09/03/2020, 08/13/2020 Influenza Vaccine (Season Ended) 2025 04/20/2022, 03/12/2019 Pneumococcal vaccine <65 Aged Out No longer eligible based on patient's age to complete this topic Insurance [facility] ACCESS CHOICE [facility] ACCESS CHOICE Care Teams Director Of Corporate Marketing Relationship Specialty Start Date End Date Lazara Augustin MD [address] [place] [address] PCP - General Family Medicine 09/06/23
--- OUTSIDE RECORDS SUMMARY | 2024-09-27 12:44 | XMS_ITS | Encounter Summary ---
Author Organization [facility] Address 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
--- OUTSIDE RECORDS SUMMARY | 2024-09-27 12:44 | XMS_ITS | Referral Summary ---
Author Organization [facility] Address [address] [place] [address] Care Team Providers Care Armhole Raiser Lockstitch Name Role Phone Lazara Augustin MD Primary [...] tivity 10/21/2014 Overview (08/13/2016): Attention deficit disorder Social History Tobacco Use Types Packs/Day Years Used Date Smoking Tobacco: Never Smokeless Tobacco: Never Comments:My parents smoked a nd I worked on a [employer], 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 Alcohol Use Standard Drinks/Week Comments Yes 0 (1 standard drink = 0.6 oz pur e alcohol) Personal Safety Answer Date Recorded Getting School Help Needed Not on file 08/22 Comments Unknown Sex and Gender Information Value Date Recorded Sex Assigned at Not on file 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
--- NOTE | 2024-09-28 09:53 | WPDPFTINT ---
PFT Procedure Performed PFT Procedure Performed Spirometry with Pre/Post Bronchodilator Plethysmography (Lung Vol) Diffusing Cap (DLCO) Flow Vol Loop PFT Interpretation This is a pulmonary function test with pre and post-bronchodilator spirometry, plethysmography and diffusing capacity. The test was performed and results interpreted in accordance with the 2019 and 2005 ATS/ERS Task Force guidelines respectively using the Global Lung Function Initiative-2012 reference equations. Patient demonstrated good effort and cooperation. Reproducibility criteria were met. The quality of the pre bronchodilator spirometry maneuver was Grade B and post bronchodilator spirometry maneuver was Grade A. Findings: Spirometry: The contour the inspiratory and expiratory flow tracing are normal. The pre bronchodilator FVC is 3.36 L, 98% predicted. The pre bronchodilator FEV1 is 2.69 L, 99% predicted. The pre bronchodilator FEV1: FVC ratio is 80%. The post bronchodilator FVC is 3.34 L, representing 1% decrease. The post bronchodilator FEV1 is 2.74 L, representing a 2% increase. The post bronchodilator FEV1: FVC ratio is 82%. Plethysmography: The total lung capacity is 5.38 L, 104% predicted. The functional residual capacity is 3.37 L, 115% predicted. The residual volume is 2.02 L, 105% predicted. Diffusing capacity: The diffusing capacity unadjusted for hemoglobin and carboxyhemoglobin is 20.2, 89% predicted. The diffusing capacity adjusted for alveolar volume is 4.38, 98% predicted. Impression: The spirometry is normal without evidence of an obstructive abnormality. There is no significant improvement after inhaling a single dose of albuterol. The lung volumes are normal. The diffusing capacity is normal. There are no prior studies for comparison
== END 2024-09-27 12:40 | disposition home or self-care (01) ==
PROVIDERS: PCP Family Medicine; Visit Provider Nurse Practitioner Adult Health
DX: R06.02 Shortness of breath (principal)
CPT/HCPCS: 94060; 94726; 94729

== ENCOUNTER 2024-12-06 08:23 | Outpatient (CLI) | payer BC, SELFPAY ==
--- NOTE | ~2024-12-06 | XR_ITS ---
Left foot Technique: AP, oblique, and lateral views were obtained. Clinical History: Injury Findings: No acute fracture or dislocation is seen. Osseous alignment is anatomic. Joint spaces are p reserved without erosive or degenerative change. Soft tissues are unremarkable. Impression: Unremarkable left foot radiographs. Reviewed, dictated and finalized at location . Impression: Unremarkable left foot radiographs.
== END 2024-12-06 08:24 | disposition home or self-care (01) ==
PROVIDERS: PCP Family Medicine
DX: M79.672 Pain in left foot (principal)
CPT/HCPCS: 73630

== ENCOUNTER 2024-12-26 07:49 | Outpatient (CLI) | payer BC, SELFPAY ==
--- NOTE | ~2024-12-26 | DEXA_ITS ---
Bone Density Report Name: SARAHY ESQUEDA Age: 54 Sex: Female Ethnicity: White Date of : 1970 Indication: postmenopausal; screening for osteoporosis; asthma or emphysema; Referring Provider: MURALI MELENDREZ Study: Bone densitometry was performed. Exam Date: December 26, 2024 Accession number: [id number] Bone Density: Region BMD T-score Z-score Classification AP Spine(L1-L4) 1.307 2.4 3.5 Normal Femoral Neck (Left) 0.773 -0.7 0.4 Normal Total Hip (Left) 0.976 0.3 1.0 Normal Femoral Neck (Right) 0.789 -0.5 0.6 Normal Total Hip (Right) 0.970 0.2 1.0 Normal Total Hip Mean 0.973 0.3 1.0 Normal World Health Organization criteria for BMD impression classify patients as: Normal (T-score at or above -1.0), Osteopenia (T-score between -1.0 and -2.5), or Osteoporosis (T-score at or below -2.5). 10-year Fracture Risk: FRAX not reported because: All T-scores for Spine Total, Hip Total, Femoral Neck at or above -1.0 Clinical Information Provided by Patient: Has used the following medications: Vitamin D Has the following medical conditions: Asthma or Emphysema Patient maximum height was 65 Menopause Age: 52 Drinks caffeinated beverages Onset of menses at age 14 Number of children 1 Impression: The patient has normal bone mass. Discussion: BONE DENSITY IS ABOVE THE MINIMUM DESIRABLE LEVEL AT ALL SKELETAL SITES TESTED. This patient?s bone mineral density is above the minimum desirable level (T-score -1.0 or better) at all sites measured. The patient should follow a healthful lifestyle (good nutrition with adequate calcium and vitamin D, and appropriate weight-bearing exercise). Follow-Up: Consider repeating this study in 5 years or sooner if there is some new clinical indication. Reported by: JERMAINE on 12/26/2024 8:34:00 AM. Reviewed, dictated and finalized at location A.
== END 2024-12-26 07:50 | disposition home or self-care (01) ==
LOC: MICIMG 07:49
PROVIDERS: PCP Family Medicine; Visit Provider Obstetrics & Gynecology
DX: Z78.0 Asymptomatic menopausal state (principal)
CPT/HCPCS: 77080

== ENCOUNTER 2024-12-28 09:07 | Outpatient (CLI) | payer BC, SELFPAY ==
--- OUTSIDE RECORDS SUMMARY | 2015-01-03 | XMS_ITS | Encounter Summary ---
Author Organization [facility] Healthcare Address [address] [place] [address] Care Team Providers Care Sales Broker Name Role Phone Unavailable Primary Care Provider Unavailabl e Reason for Visit * Diagnostic Imaging (Routine) - Pending Review Specialty Diagnoses / Procedures Referred By Celestine doll Referred To Contact Procedures Breast Imaging Screening Outside Reference Transcribed Order, Provider Referral ID Status Reason Start Date Expiration Date V isits Requested Visits Authorized [id number] Pending Review 11/13/2024 12/13/2025 1 1 Encounter Details Date Type Department Care Team (Late st Contact Info) Description 01/03/2015 Hospital Encounter [facility] [address] [place] [address] Social History Tobacco Use Types Packs/Day Years Used Date Smoking Tobacco: Never Smokeless Tobacco: Never Comments: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, 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 Alcohol Use Standard Drinks/Week Comments Yes 0 (1 standard drink = 0.6 oz pur e alcohol) Comments No Sex and Gender Information Value Date Recorded Sex Assigned at Not on file 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 There will be no report generated by a [facility] Radiologist. Narrative [facility] - 11/13/2024 2:33 PM CDT EXAMINATION: Images For Reference Purposes Only us Provider Transcribed Order IMG MAMMO PROCEDURES Final Result [facility] documented in this encounter Visit Diagnoses Not on filedocumented in this encounter
--- OUTSIDE RECORDS SUMMARY | 2016-01-15 | XMS_ITS | Encounter Summary ---
Author Organization [facility] Healthcare Address [address] [place] [address] Care Team Providers Care Grocery Store Clerk Name Role Phone Unavailable Primary Care Provider Unavailabl e Reason for Visit * Diagnostic Imaging (Routine) - Pending Review Specialty Diagnoses / Procedures Referred By Celestine doll Referred To Contact Procedures Breast Imaging Screening Outside Reference Transcribed Order, Provider Referral ID Status Reason Start Date Expiration Date V isits Requested Visits Authorized [id number] Pending Review 11/13/2024 12/13/2025 1 1 Encounter Details Date Type Department Care Team (Late st Contact Info) Description 01/15/2016 Hospital Encounter [facility] [address] [place] [address] Social History Tobacco Use Types Packs/Day Years [...] on file 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 There will be no report generated by a [facility] Radiologist. Narrative [facility] - 11/13/2024 2:33 PM CDT EXAMINATION: Images For Reference Purposes Only us Provider Transcribed Order IMG MAMMO PROCEDURES Final Result [facility] documented in this encounter Visit Diagnoses Not on filedocumented in this encounter
--- OUTSIDE RECORDS SUMMARY | 2017-05-12 01:00 | XMS_ITS | Encounter Summary ---
Author Organization [facility] Healthcare Address [address] [place] [address] Care Team Providers Care Foreign Banknote Teller Trader Name Role Phone Unavailable Primary Care Provider Unavailabl e Reason for Visit * Diagnostic Imaging (Routine) - Pending Review Specialty Diagnoses / Procedures Referred By Celestine doll Referred To Contact Procedures Breast Imaging Screening Outside Reference Transcribed Order, Provider Referral ID Status Reason Start Date Expiration Date V isits Requested Visits Authorized [id number] Pending Review 11/13/2024 12/13/2025 1 1 Encounter Details Date Type Department Care Team (Late st Contact Info) Description 05/12/2017 Hospital Encounter [facility]) [address] [place] [address] Social History Tobacco Use Types Packs/Day Years [...] on file 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 Gender Identity Not on file Sexual Orientation Not on file documented as of this encounter Plan of Treatment Not on file documented as of this encounter Procedures Procedure Name Priority Date/Time Associated Diagnosis Comments BREAST IMAGING MG SCREENING OUTSIDE REFERENCE Routine 05/12/2017 12:00 AM WINDOWS MIGRATION TECHNICIAN documented in this encounter Results * Breast Imaging Screening Outside Reference (05/12/2017 12:00 AM WINDOWS MIGRATION TECHNICIAN) Impressions [facility] - 11/13/2024 2:33 PM CDT These images are for Reference purposes only and have not been reviewed by [facility]. There will be no report generated by a [facility] Radiologist. Narrative [facility] - 11/13/2024 2:33 PM CDT EXAMINATION: Images For Reference Purposes Only us Provider Transcribed Order IMG MAMMO PROCEDURES Final Result [facility] documented in this encounter Visit Diagnoses Not on filedocumented in this encounter
--- OUTSIDE RECORDS SUMMARY | 2018-06-06 01:00 | XMS_ITS | Encounter Summary ---
Author Organization [facility] Healthcare Address [address] [place] [address] Care Team Providers Care Cupola Operator Name Role Phone Unavailable Primary Care Provider Unavailabl e Reason for Visit * Diagnostic Imaging (Routine) - Pending Review Specialty Diagnoses / Procedures Referred By Celestine doll Referred To Contact Procedures Breast Imaging Screening Outside Reference Transcribed Order, Provider Referral ID Status Reason Start Date Expiration Date V isits Requested Visits Authorized [id number] Pending Review 11/13/2024 12/13/2025 1 1 Encounter Details Date Type Department Care Team (Late st Contact Info) Description 06/06/2018 Hospital Encounter [facility] [address] [place] [address] Social History Tobacco Use Types Packs/Day Years [...] on file 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 Gender Identity Not on file Sexual Orientation Not on file documented as of this encounter Plan of Treatment Not on file documented as of this encounter Procedures Procedure Name Priority Date/Time Associated Diagnosis Comments BREAST IMAGING MG SCREENING OUTSIDE REFERENCE Routine 06/06/2018 12:00 AM GYROSCOPE TECHNICIAN documented in this encounter Results * Breast Imaging Screening Outside Reference (06/06/2018 12:00 AM GYROSCOPE TECHNICIAN) Impressions [facility] - 11/13/2024 2:33 PM CDT These images are for Reference purposes only and have not been reviewed by [facility]. There will be no report generated by a [facility] Radiologist. Narrative [facility] - 11/13/2024 2:33 PM CDT EXAMINATION: Images For Reference Purposes Only us Provider Transcribed Order IMG MAMMO PROCEDURES Final Result [facility] documented in this encounter Visit Diagnoses Not on filedocumented in this encounter
--- OUTSIDE RECORDS SUMMARY | 2019-09-05 | XMS_ITS | Encounter Summary ---
Author Organization [facility] Healthcare Address [address] [place] [address] Care Team Providers Care Check Pilot Name Role Phone Unavailable Primary Care Provider Unavailabl e Reason for Visit * Diagnostic Imaging (Routine) - Pending Review Specialty Diagnoses / Procedures Referred By Celestine doll Referred To Contact Procedures Breast Imaging Screening Outside Reference Transcribed Order, Provider Referral ID Status Reason Start Date Expiration Date V isits Requested Visits Authorized [id number] Pending Review 11/13/2024 12/13/2025 1 1 Encounter Details Date Type Department Care Team (Late st Contact Info) Description 09/05/2019 Hospital Encounter [facility] [address] [place] [address] Social History Tobacco Use Types Packs/Day Years [...] on file 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 There will be no report generated by a [facility] Radiologist. Narrative [facility] - 11/13/2024 2:33 PM CDT EXAMINATION: Images For Reference Purposes Only us Provider Transcribed Order IMG MAMMO PROCEDURES Final Result [facility] documented in this encounter Visit Diagnoses Not on filedocumented in this encounter
--- OUTSIDE RECORDS SUMMARY | 2024-12-28 09:12 | XMS_ITS | Clinical Summary ---
Author Organization [facility] Address [address] [place] [address] Care Team Providers Care Director Ehs Name Role Phone Unavailable Primary Care Provider Unavailabl e Encounters Date Type Department Care Team Description 12/11/2024 External Device Data [facility] ABSTRACTION Provider, Abstract 11/21/2024 External Device Data [facility] ABSTRACTION Provider, Abstract 11/21/2024 External Device Data [facility] ABSTRACTION Provider, Abstract 10/23/2024 External Device Data [facility] ABSTRACTION Provider, Abstract 10/02/2024 External Device Data STL ABSTRACTION Provider, Abstract from Last 3 Months Social History Tobacco Use Types Packs/Day Years Used Date Smoking Tobacco: Never Assessed Comments Unknown Sex and Gender Information Value Date Recorded Sex Assigned at Not on file 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
--- OUTSIDE RECORDS SUMMARY | 2024-12-28 09:12 | XMS_ITS | Clinical Summary ---
Author Organization [facility] Address [address] [place] [address] Care Team Providers Care Pet Resort Concierge Name Role Phone Corky Ghotra MD Primary Care Provider [phone] Allergies Active Allergy Reactions Criticality Noted Date [...] tivity 10/21/2014 Overview (08/13/2016): Attention deficit disorder Encounters Date Type Department Care Team Description 11/13/2024 Orders Only [facility] [address] [place] [address] ProviderHernan MD 11/12/2024 11:21 AM CDT - 11/12/2024 11:59 PM CDT Hospital Encounter [facility]) [address] [place] [address] Screening mammogram, encounter for Discharge Disposition: Discharge to home or self care from Last 3 Months Surgical History Surgery Date Site/Laterality Comments ENDOMETRIAL ABLATION uterine ablation SECTION 02/13/1998 ESTHER 2005 BREAST BIOPSY Right Medical History Medical History Date Comments Arthritis 2020 Autoimmune disease 2017 Family History Medical History Relation Name Comments Cancer Father Cesar White Colon cancer Father Cesar White Cancer, colon; Depression Father Cesar White Early Father Cesar White Hypertension Father Cesar White Stroke Father Cesar White Early Father's Brother 1 Radha White Heart attack Father's Brother 1 Radha White Stroke Father's Brother 1 Radha White Mental illness Father's Brother 2 Gilberto White Vision loss Father's Brother 3 Bud White COPD Father's Sister 1 Jessie White Vision loss Father's Sister 2 Juana Mckeon Kidney disease Maternal Grandfather Jean Paul Arboleda Arthritis Maternal Grandmother Gwendolyn Esparza COPD Mother Khadra White Hypertension Mother Khadra White Cancer Mother's Sister 1 Ria Grindley Cancer Mother's Sister 2 Sheridan Arline Ovarian cancer Mother's Sister 3 Urmila Breast cancer Other Diabetes Paternal Grandfather Miladis White Heart attack [...] Grandfather Jean Paul Arboleda Maternal Grandmother Gwendolyn Vilma Mother Khadra White Mother's Sister 1 Ria Grindley Mother's Sister 2 Sheridan [place] Mother's Sister 3 Urmila Other Maternal Half A unt x 2 Paternal Grandfather Miladis White Paternal Grandmother Kaylie White Social History Tobacco Use Types Packs/Day Years Used Date Smoking Tobacco: Never Smokeless Tobacco: Never Comments:My parents smoked a nd I worked on a [employer], 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 Alcohol Use Standard Drinks/Week Comments Yes 0 (1 standard drink = 0.6 oz pur e alcohol) Comments No Sex and Gender Information Value Date Recorded Sex Assigned at Not on file 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[employer] Gender Identity Not on file Sexual Orientation Not on file Obstetrics History Para Term AB IAB SAB Ectopic Multiple Livin g Live Births 1 1 Date Outcome GA Total Labor Labor/2nd/3rd Weight Sex Type Anes PTL Selena A1 A5 Name Clin Term Last Filed Vital Signs Vital Sign Reading Time Taken Comments Blood Pressure 128/80 10/21/2014 1:40 PM CDT Pulse 76 10/21/2014 1:40 PM CDT Temperature - - Respiratory Rate - - Oxygen Saturation - - Inhaled Oxygen Concentration - - Weight 63.5 kg (140 lb) 11/12/2024 11:37 AM CDT Height 165.1 cm (5' 5) 11/12/2024 11:37 AM CDT Body Mass Index 23.3 11/12/2024 11:37 AM CDT Plan of Treatment Health Maintenance Due Date Last Done Comments Cervical Cancer Screening 1970 Colon Cancer Screening-Colonoscopy 1970 Depression Screening 1970 Hepatitis C Screening 1970 DTaP/Tdap/Td Vaccine (1 - Tdap) 01/13/1980 Hepatitis B Screening 1987 Regular Well Visit/Exam 18-64 1987 Zoster Vaccine (1 of 2) 2019 Covid-19 Vaccine (3 - Pfizer risk series) 10/01/2020 09/03/2020, 08/13/2020 Influenza Vaccine (#1) 2025 04/20/2022, 2018 Breast Cancer Screening-Mammogram 11/12/2025 11/12/2024, 04/13/2023, 12/08/2021, Additional history exists Pneumococcal vaccine <65 Aged Out No longer eligible based on patient's age to complete this topic Procedures Procedure Name Priority Date/Time Associated Diagnosis Comments SCREENING MAMMOGRAM BILATERAL W JAVI Schedule Routine, Read Routine (OP Routine) 11/12/2024 11:45 AM CDT Screening mammogram, encounter for from Last 3 Months Results * Screening Mammogram Bilateral W Javi (11/12/2024 11:45 AM CDT) Anatomical Region Laterality Modality Breast Bilateral Mammography Impressions 11/14/2024 10:20 AM CDT Bilateral No evidence of malignancy in either breast. OVERALL BI-RADS FINAL ASSESSMENT: 1 - Negative RECOMMENDATION: Recommend bilateral annual screening mammography. Narrative 11/14/2024 10:20 AM CDT EXAMINATION: Screening Mammogram Bilateral W Javi: 11/12/2024 COMPARISON: Prior mammograms from [facility], most recently 04/13/2023. TECHNIQUE: Mammography was performed with 2D and digital breast tomosynthesis (DBT) images. CAD was utilized. BREAST PARENCHYMAL COMPOSITION: The breasts are heterogeneously dense, which may obscure small masses. FINDINGS: Bilateral There is no suspicious mass, calcification, or architectural distortion in either breast. us Self Screening Mammogram IMG MAMMO PROCEDURES Fi nal Result from Last 3 Months Insurance [facility] ACCESS CHOICE ANTHEM ACCESS CHOICE Care Teams Pet Resort Concierge Relationship Specialty Start Date End Date Corky Ghotra MD [address] [place] [address] PCP - General Family Medicine 10/26/24
--- NOTE | 2024-12-28 09:16 | EST_ITS ---
Patient Info Name: Cornelia Carmen Age: 54 years : 1970 Gender: Female Ht: 65 in Wt: 140 lbs BSA: 1.71 m2 HR: 60 bpm BP: 129 / 77 mmHg Exam Date: 12/28/2024 9:16 AM Patient Status: O Admit Date: 12/28/2024 Exam Type: CA stress test treadmill A treadmill exercise stress test was performed. Staff Attending Provider: Ximena Lai Exercise Technologist: Eileen Johnson Exercise Physician: Tad Basurto DO Summary 1. 1. Negative Luc exercise stress test for ischemic ST changes by ECG criteria. 2. 2. Good functional capacity, achieving 10.9 METs of workload. 3. 3. Appropriate HR response to exercise. 4. 4. Appropriate HR recovery at 1 minute post exercise. 5. 5. No imaging with stress testing. 6. 6. Patient informed of the above results. Protocol: Luc Stress ECG Details Stage: REST Duration (min): 2 min : 26 sec Speed (mph): 0.0 Grade (%): 0 HR (bpm): 57 SBP (mmHg): 129 DBP (mmHg): 77 METS: --- Stage: REST Duration (min): 5 min : 46 sec Speed (mph): 0.0 Grade (%): 0 HR (bpm): 68 SBP (mmHg): 129 DBP (mmHg): 77 METS: --- Stage: STAGE 1 Duration (min): 1 min : 0 sec Speed (mph): 1.7 Grade (%): 10 HR (bpm): 104 SBP (mmHg): 129 DBP (mmHg): 77 METS: --- Stage: STAGE 1 Duration (min): 2 min : 0 sec Speed (mph): 1.7 Grade (%): 10 HR (bpm): 111 SBP (mmHg): 129 DBP (mmHg): 77 METS: --- Stage: STAGE 1 Duration (min): 3 min : 0 sec Speed (mph): 1.7 Grade (%): 10 HR (bpm): 109 SBP (mmHg): 150 DBP (mmHg): 61 METS: --- Stage: STAGE 2 Duration (min): 1 min : 0 sec Speed (mph): 2.5 Grade (%): 12 HR (bpm): 116 SBP (mmHg): 150 DBP (mmHg): 61 METS: --- Stage: STAGE 2 Duration (min): 2 min : 0 sec Speed (mph): 2.5 Grade (%): 12 HR (bpm): 119 SBP (mmHg): 147 DBP (mmHg): 62 METS: --- Stage: STAGE 2 Duration (min): 3 min : 0 sec Speed (mph): 2.5 Grade (%): 12 HR (bpm): 120 SBP (mmHg): 147 DBP (mmHg): 62 METS: --- Stage: STAGE 3 Duration (min): 1 min : 0 sec Speed (mph): 3.4 Grade (%): 14 HR (bpm): 127 SBP (mmHg): 146 DBP (mmHg): 66 METS: --- Stage: STAGE 3 Duration (min): 2 min : 0 sec Speed (mph): 3.4 Grade (%): 14 HR (bpm): 132 SBP (mmHg): 146 DBP (mmHg): 66 METS: --- Stage: STAGE 3 Duration (min): 3 min : 0 sec Speed (mph): 3.4 Grade (%): 14 HR (bpm): 134 SBP (mmHg): 162 DBP (mmHg): 69 METS: --- Stage: STAGE 4 Duration (min): 0 min : 29 sec Speed (mph): 4.2 Grade (%): 16 HR (bpm): 140 SBP (mmHg): 162 DBP (mmHg): 69 METS: --- Stage: RECOVERY Duration (min): 0 min : 30 sec Speed (mph): 0.0 Grade (%): 0 HR (bpm): 140 SBP (mmHg): 162 DBP (mmHg): 69 METS: --- Stage: RECOVERY Duration (min): 1 min : 30 sec Speed (mph): 0.0 Grade (%): 0 HR (bpm): 107 SBP (mmHg): 162 DBP (mmHg): 69 METS: --- Stage: RECOVERY Duration (min): 2 min : 30 sec Speed (mph): 0.0 Grade (%): 0 HR (bpm): 82 SBP (mmHg): 162 DBP (mmHg): 69 METS: --- Stage: RECOVERY Duration (min): 3 min : 30 sec Speed (mph): 0.0 Grade (%): 0 HR (bpm): 78 SBP (mmHg): 152 DBP (mmHg): 75 METS: --- Stage: RECOVERY Duration (min): 4 min : 30 sec Speed (mph): 0.0 Grade (%): 0 HR (bpm): 71 SBP (mmHg): 152 DBP (mmHg): 75 METS: --- Stage: RECOVERY Duration (min): 5 min : 30 sec Speed (mph): 0.0 Grade (%): 0 HR (bpm): 69 SBP (mmHg): 141 DBP (mmHg): 83 METS: --- Stage: RECOVERY Duration (min): 6 min : 30 sec Speed (mph): 0.0 Grade (%): 0 HR (bpm): 62 SBP (mmHg): 141 DBP (mmHg): 83 METS: --- Stage: RECOVERY Duration (min): 7 min : 10 sec Speed (mph): 0.0 Grade (%): 0 HR (bpm): 67 SBP (mmHg): 131 DBP (mmHg): 81 METS: --- Rest HR: 68 bpm Peak HR: 141 bpm Rest Sys BP: 129 mmHg Peak Sys BP: 162 mmHg Max Pred HR: 165 bpm % Max Pred HR: 85 % Target HR: 140 bpm Max RPP: 22,842 bpm*mmHg King Score: -0 Termination Reason: Reached target heart rate or workload Cardiac Symptoms: None Max ST Seg Deviation: 1.90 mm Total Time: 9 min : 29 sec Rest Heath BP: 77 mmHg Peak Heath BP: 69 mmHg Angina Score: None Total METS: 10.9 Resting ECG Sinus rhythm. Stress ECG No ST changes. Arrhythmias None. Report Signatures
--- NOTE | 2024-12-28 09:51 | ECHO_ITS ---
Patient Info Name: Cornelia Carmen Age: 54 years : 1970 Gender: Female Ht: 65 in Wt: 140 lbs BSA: 1.71 m2 HR: 64 bpm BP: 128 / 78 mmHg Technical Quality: Good Exam Date: 12/28/2024 10:31 AM Patient Status: O Admit Date: 12/28/2024 Exam Type: CA echo doppler color flow Complete two-dimensional, color flow and Doppler transthoracic echocardiogram is performed. [employer]: Talya Davison Attending Provider: Ximena Lai Summary 1. Complete two-dimensional, color flow and Doppler transthoracic echocardiogram is performed. 2. Left ventricular chamber dimension is normal. 3. Left ventricular systolic function is normal, estimated at 60-65. 4. The left ventricular diastolic function is normal. 5. E/e' 7 is not elevated. 6. There is trace mitral valve regurgitation. 7. There is trace tricuspid valve regurgitation. 8. Dilated inferior vena cava with >50% collapse upon inspiration consistent with elevated right atrial pressure, 10 mmHg. Left Ventricle E/e' 7 is not elevated. Left ventricular chamber dimension is normal. Left ventricular systolic function is normal, estimated at 60-65. The left ventricular diastolic function is normal. Right Ventricle Right ventricular chamber dimension is normal. Right ventricular systolic function is normal and with normal TAPSE 1.8 cm. Left Atria Left atrial chamber dimension is normal. Right Atria Right atrial chamber dimension is normal. Aortic Valve The aortic valve is trileaflet. There is no aortic valve stenosis. There is no aortic valve regurgitation. Pulmonic Valve There is no pulmonic regurgitation. Mitral Valve There is no mitral valve stenosis. There is trace mitral valve regurgitation. Tricuspid Valve There is trace tricuspid valve regurgitation. RVSP is not measured due to an inadequate TR jet. Pericardium/Pleural There is no pericardial effusion. Inferior Vena Cava Dilated inferior vena cava with >50% collapse upon inspiration consistent with elevated right atrial pressure, 10 mmHg. Aorta The aortic root size at the sinus of Valsalva is normal. Left Ventricular Outflow Tract Name Value Normal LVOT 2D LVOT Diameter 2.0 cm LVOT Doppler LVOT Peak Velocity 101 cm/s LVOT Peak Gradient 4 mmHg LVOT Mean Gradient 2 mmHg LVOT VTI 25 cm LVOT Stroke Volume 78 ml LVOT CO 4.9 l/min LVOT CI 2.9 l/min/m2 Pulmonic Valve Name Value Normal RVOT Doppler RVOT Peak Velocity 61 cm/s RVOT Peak Gradient 1 mmHg PV Doppler PV Peak Velocity 91 cm/s PV Peak Gradient 3 mmHg Mitral Valve Name Value Normal MV Diastolic Function MV E Peak Velocity 83 cm/s MV A Peak Velocity 74 cm/s MV E/A 1.1 MV Decel Time (PW) 163 ms MV Annular TDI MV E/e' (Septal) 9.6 MV E/e' (Lateral) 6.8 MV E/e' (Average) 8.2 Tricuspid Valve Name Value Normal Estimated PAP/RSVP RA Pressure 10 mmHg <=5 Aortic Valve Name Value Normal AV Doppler AV Peak Velocity 143 cm/s AV Peak Gradient 8 mmHg AV Area (Cont Eq Mustapha) 2.2 cm2 AV DI (Mustapha) 0.70 AV Regurgitation 2D LVOT Area 3.1 cm2 Ventricles Name Value Normal LV Dimensions 2D/MM IVS Diastolic Thickness (2D) 0.8 cm 0.6-1.0 LVID Diastole (2D) 4.3 cm 3.8-5.2 LVIW Diastolic Thickness (2D) 1.1 cm 0.6-0.9 LVID Systole (2D) 2.7 cm 2.2-3.5 LVOT Diameter 2.0 cm LV Mass (2D Cubed) 138.47 g 67.00-162.00 LV Mass Index (2D Cubed) 81 g/m2 43-95 Relative Wall Thickness (2D) 0.54 <=0.42 LV Fractional Shortening/Ejection Fraction 2D/MM LV Fractional Shortening (2D) 36 % 27-45 LV EF (2D Teichholz) 66 % LV Diastolic Volume (4C MOD) 99 ml LV EF (4C MOD) 56 % LV Diastolic Volume (2C MOD) 85 ml LV EF (2C MOD) 55 % LV Diastolic Volume (BP MOD) 92 ml 46-106 LV Diastolic Volume Index (BP MOD) 54 ml/m2 29-61 LV Systolic Volume (BP MOD) 42 ml 14-42 LV Systolic Volume Index (BP MOD) 25 ml/m2 8-24 LV EF (BP MOD) 55 % 54-74 LV Diastolic Length (4C) 7.7 cm LV Systolic Length (4C) 6.3 cm LV Stroke Volume (4C MOD) 55 ml Atria Name Value Normal LA Dimensions LA Volume (4C A-L) 39 ml LA Volume (BP A-L) 43 ml RA Dimensions RA Systolic Major Austin Length (4C) 4.7 cm 2.2-2.8 RA Area (4C) 12.7 cm2 <=18.0 Report Signatures
== END 2024-12-28 09:08 | disposition home or self-care (01) ==
PROVIDERS: PCP Family Medicine; Visit Provider Nurse Practitioner Family
DX: R06.02 Shortness of breath (principal); R53.83 Other fatigue; R07.89 Other chest pain
CPT/HCPCS: 93017; 93306

== ENCOUNTER 2025-04-02 08:12 | Outpatient (CLI) | payer BC, SELFPAY ==
--- NOTE | ~2025-04-02 | XR_ITS ---
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 Findings: No acute fracture or malalignment. No significant degenerative changes. Soft tissues unremarkable. Impression: No acute fracture or malalignment. Reviewed, dictated and finalized at location P. CH MARKETING SPECIALIST Impression: No acute fracture or malalignment.
--- NOTE | ~2025-04-02 | XR_ITS ---
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 Findings: No acute fracture or malalignment. No significant degenerative changes. Soft tissues unremarkable. Impression: No acute fracture or malalignment. Reviewed, dictated and finalized at location P. EL BUFFER Impression: No acute fracture or malalignment.
== END 2025-04-02 08:13 | disposition home or self-care (01) ==
LOC: MICIMG 08:13
PROVIDERS: PCP Family Medicine; Visit Provider Nurse Practitioner Family
DX: M25.50 Pain in unspecified joint (principal); M25.561 Pain in right knee; M79.604 Pain in right leg; M25.551 Pain in right hip
CPT/HCPCS: 73502; 73564

== ENCOUNTER 2025-05-07 13:32 | Outpatient (CLI) | payer BC, SELFPAY ==
--- NOTE | ~2025-05-07 | MR_ITS ---
EXAMINATION: [id number] DATE: 05/07/2025 14:36 INDICATION: TECHNIQUE: 1. Magnetic resonance imaging (MRI) of the affected hip was performed without intravenous contrast. Sequences included full-field axial PD-weighted FS FSE and T1-weighted FSE, coronal of the pelvis with PD-weighted FS FSE, small field of view of the affected hip with axial PD-weighted FS FSE, sagittal PD-weighted FS FSE and coronal PD weighted FS FSE. Additional radial T1-weighted FGR oriented orthogonal to the acetabular rim were obtained for evaluation of the labrum. 2. Magnetic resonance imaging (MRI) of the knee was performed without intravenous contrast. Sequences included axial, coronal, and sagittal PD- weighted FSE without and with fat saturation. COMPARISON: None FINDINGS: PELVIS AND RIGHT HIP Bones/labrum/cartilage: Alignment is normal. No fracture, avascular necrosis or pathologic marrow replacing process. Degenerative tearing at the superolateral right acetabular labrum. There are mild osteoarthritis at the right hip with mild nonuniform partial-thickness cartilage loss with smooth chondral surface and without degenerative subchondral changes most prominent at the posterior and to lesser degree anterosuperior aspects of the joint space. Fluid: Symmetric physiologic amount of fluid within both hip joints. Mild likely physiologic free fluid in the pelvis. Soft tissues: Normal and symmetric muscle bulk and signal in the pelvis and visualized proximal thighs. The iliopsoas, gluteal and proximal hamstring tendons are normal. 3 cm uterine fibroid. Limited evaluation of visceral organs of the pelvis is unremarkable. No pathologically enlarged pelvic/inguinal lymphadenopat hy. RIGHT KNEE Medial compartment: Medial meniscus is normal. Partial-thickness chondral ulceration involving up to 50% the cartilage thickness along the lateral margin of the anterior weightbearing medial femoral condyle without degenerative subchondral changes. Normal cartilage along the medial tibial plateau. Lateral compartment: Lateral meniscus is normal. Scattered shallow chondral surface regularity along the central to posterior lateral tibial plateau. Cartilage along the weightbearing lateral femoral condyle is normal. Patellofemoral compartment: Mild partial-thickness chondral ulceration extending transversely across the central aspect of the medial patellar facet, apical ridge and lateral facet. There are some scattered partial thickness chondral fissuring involving less than 50% the cartilage thickness along the lateral patellar facet. Mild partial- thickness chondral ulceration involving up to 50% the cartilage thickness at the trochlear groove and inferolateral aspect of the medial trochlea without degenerative subchondral changes Ligaments and tendons: Anterior and posterior cruciate ligaments are normal. The medial collateral ligament and fibular collateral ligament complex are normal. Mild distal quadriceps tendinopathy without tear. The patellar tendon is normal. The visualized medial and lateral hamstring tendons as well as the iliotibial band are normal. Fluid: Physiologic amount of fluid in the joint space. No loose osteochondral bodies identified. Osseous/other: Normal marrow signal. No fracture or pathologic marrow replacing process. IMPRESSION: 1. Very mild right hip osteoarthritis with degenerative tearing at the superolateral acetabular labrum. 2. 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 Reviewed, dictated and finalized at location A. UALIZATION ARCHITECT IMPRESSION: 1. Very mild right hip osteoarthritis with degenerative tearing at the superola teral acetabular labrum. 2. Mild tricompartmental osteoarthritis with scattered regions of moderate grad e chondromalacia in all 3 components.
== END 2025-05-07 13:33 | disposition home or self-care (01) ==
LOC: MICIMG 13:33
PROVIDERS: PCP Family Medicine; Visit Provider Nurse Practitioner Family
DX: M24.151 Other articular cartilage disorders, right hip (principal); M16.11 Unilateral primary osteoarthritis, right hip; M17.11 Unilateral primary osteoarthritis, right knee; M22.41 Chondromalacia patellae, right knee
CPT/HCPCS: 73721